=== PATIENT | male | born 1945 | race Caucasian/White ===

== ENCOUNTER → 2020-07-11 02:49 | Outpatient (CLI) | payer BC, SELFPAY ==
[2020-07-11 18:15] LABS: SARS-CoV-2 RNA PCR Negative
== END ==
PROVIDERS: PCP Internal Medicine; Visit Provider Internal Medicine Gastroenterology
DX: Z01.812 Encounter for preprocedural laboratory examination (principal); Z20.822 Contact with and (suspected) exposure to COVID-19
CPT/HCPCS: C9803; U0003; U0005

== ENCOUNTER 2020-07-14 01:37 | Day surgery (SDC) | payer BC, SELFPAY ==
[2020-07-04 14:12] VITALS: BMI 30.8
[2020-07-14 07:03] VITALS: BP 129/57; PULSE 71; RESP 18; TEMP 36.3; O2SAT 97; BMI 35.5
[2020-07-14 07:10] LABS: Glucose Point of Care 95 mg/dl (65-105)
--- NOTE | 2020-07-14 07:10 | PM.HPGS ---
History of Present Illness History of Present Illness Consent: Risks, benefits, and alternatives have been discussed and questions answered. Patient agrees to proceed with procedure. Chief complaint: hx colon polyp Narrative: Albin Ely is a 75 year old male who is here today for colon cancer screening. He had an adenomatous polyp removed 8 years ago Review of Systems Review of Systems: All systems reviewed & are unremarkable except as noted in HPI and below PMFSH Past Medical History Medical History Benign essential hypertension Blindness of left eye BMI 33.0-33.9,adult CKD (chronic kidney disease) Colon cancer screening DM type 2 (diabetes mellitus, type 2) Elevated homocysteine Encounter for Medicare annual wellness exam Encounter for preventive health examination Encounter for routine adult health examination without abnormal findings Encounter for special screening examination for neoplasm of prostate Hearing loss History of colon polyps Hyperlipidemia Mild reactive airways disease On intermediate project manager drug therapy CHEMA on CPAP Family History Family History Mother Family history of Alzheimer's disease Hypertension Father Acute myocardial infarction Family history of coronary artery disease Sibling Family history of diabetes mellitus in first degree relative Family history of coronary artery disease Diabetes mellitus Grandparent Diabetes mellitus Hypertension Grandparent Cancer Other Family history of lung cancer Social History Social History Smoking status: Never smoker Alcohol intake: current Drinks per week: 3 Substance use: never Substance use type: does not use Living arrangements: with family Additional living arrangements comments: lives with spouse, Renetta Spiritual care concerns: No Meds Home Medications and Allergies Home Medications Medication Instructions Recorded Confirmed Type betamethasone dipropionate 0.05 % 1 applic TOPICAL PRN PRN 01/25/19 07/14/20 History topical cream blood sugar diagnostic See Rx Instructions .ROUTE 08/16/19 07/14/20 Rx .COMPLEX #100 strip empagliflozin 10 mg tablet See Rx Instructions .ROUTE 12/18/19 07/14/20 Rx .COMPLEX #90 tablet folic acid 1 mg tablet See Rx Instructions .ROUTE 12/18/19 07/14/20 Rx .COMPLEX #90 tablet icosapent ethyl 1 gram capsule See Rx Instructions .ROUTE 12/18/19 07/14/20 Rx .COMPLEX #360 cap metformin 1,000 mg tablet See Rx Instructions .ROUTE 12/18/19 07/14/20 Rx .COMPLEX #270 tablet candesartan 16 mg tablet See Rx Instructions .ROUTE 01/21/20 07/14/20 Rx .COMPLEX #90 tablet niacin 1,000 mg tablet,extended See Rx Instructions .ROUTE 03/19/20 07/14/20 Rx release 24 hr .COMPLEX #90 tablet pen needle, diabetic 31 gauge x See Rx Instructions .ROUTE 04/21/20 07/14/20 Rx 5/16 .COMPLEX #100 ea sitagliptin 100 mg tablet See Rx Instructions .ROUTE 04/21/20 07/14/20 Rx .COMPLEX #90 tablet liraglutide 0.6 mg/0.1 mL (18 mg/3 1.8 mg SUBCUT DAILY #27 ml 05/28/20 07/14/20 Rx mL) subcutaneous pen injector glimepiride 4 mg tablet See Rx Instructions .ROUTE 06/05/20 07/14/20 Rx .COMPLEX #90 tablet sod picosulf 10 mg-magnes 3.5 160 ml PO BID #160 ml 06/23/20 07/14/20 Rx gram-citric 12 gram/160 mL oral solution Fish Oil 2,000 mg PO BID 07/04/20 07/14/20 History Sudafed 1 dose PO DAILY 07/04/20 07/14/20 History atorvastatin 20 mg PO DAILY 07/04/20 07/14/20 History Allergies Allergy/AdvReac Type Severity Reaction Status Date / Time aspirin Allergy Unknown Anaphylaxis Verified 07/14/20 06:59 NSAIDS (Non-Steroidal Allergy Unknown Anaphylactic Verified 07/14/20 06:59 Anti-Inflamma Shock Vital Signs Vital Signs - 24 hr 07/14/20 07:03 Temperature 36.3 C L Pulse Rate 71 Respiratory Rate 18 Blood Pressure
[2020-07-14] MEDS: LACTATED RINGERS 1,000 ML 150 ML IV CONT (07:18)
--- NOTE | 2020-07-14 07:46 | WPDANESEPPF ---
Anes - Initial Pre Proc Eval Procedure: Operation Date: 07/14/20 08:00 Proposed Procedures p Screening Colonoscopy - Duncan Randhawa MD Date/Time: 07/14/20 07:46 Surgeon: Duncan Randhawa MD Pre Op Diagnosis: hx colon polyp Patient Data Age: 75 Gender: M Height: 1.96 m Weight: 136 kg Last Vital Signs Temp 36.3 C L 07/14/20 07:03 Pulse 71 07/14/20 07:03 Resp 18 07/14/20 07:03 BP 129/57 L 07/14/20 07:03 Pulse Ox 97 07/14/20 07:03 Allergies Allergy/AdvReac Type Severity Reaction Status Date / Time aspirin Allergy Unknown Anaphylaxis Verified 07/14/20 06:59 NSAIDS (Non-Steroidal Allergy Unknown Anaphylactic Verified 07/14/20 06:59 Anti-Inflamma Shock Home Medications Medication Instructions Recorded Confirmed Type betamethasone dipropionate 0.05 % 1 applic TOPICAL PRN PRN 01/25/19 07/14/20 History topical cream blood sugar diagnostic See Rx Instructions .ROUTE 08/16/19 07/14/20 Rx .COMPLEX #100 strip empagliflozin 10 mg tablet See Rx Instructions .ROUTE 12/18/19 07/14/20 Rx .COMPLEX #90 tablet folic acid 1 mg tablet See Rx Instructions .ROUTE 12/18/19 07/14/20 Rx .COMPLEX #90 tablet icosapent ethyl 1 gram capsule See Rx Instructions .ROUTE 12/18/19 07/14/20 Rx .COMPLEX #360 cap metformin 1,000 mg tablet See Rx Instructions .ROUTE 12/18/19 07/14/20 Rx .COMPLEX #270 tablet candesartan 16 mg tablet See Rx Instructions .ROUTE 01/21/20 07/14/20 Rx .COMPLEX #90 tablet niacin 1,000 mg tablet,extended See Rx Instructions .ROUTE 03/19/20 07/14/20 Rx release 24 hr .COMPLEX #90 tablet pen needle, diabetic 31 gauge x See Rx Instructions .ROUTE 04/21/20 07/14/20 Rx 5/16 .COMPLEX #100 ea sitagliptin 100 mg tablet See Rx Instructions .ROUTE 04/21/20 07/14/20 Rx .COMPLEX #90 tablet liraglutide 0.6 mg/0.1 mL (18 mg/3 1.8 mg SUBCUT DAILY #27 ml 05/28/20 07/14/20 Rx mL) subcutaneous pen injector glimepiride 4 mg tablet See Rx Instructions .ROUTE 06/05/20 07/14/20 Rx .COMPLEX #90 tablet sod picosulf 10 mg-magnes 3.5 160 ml PO BID #160 ml 06/23/20 07/14/20 Rx gram-citric 12 gram/160 mL oral solution Fish Oil 2,000 mg PO BID 07/04/20 07/14/20 History Sudafed 1 dose PO DAILY 07/04/20 07/14/20 History atorvastatin 20 mg PO DAILY 07/04/20 07/14/20 History Laboratory Tests 07/14/20 07:08 POC Capillary Glucose 95 mg/dl mg/dl (65-105) Patient hx anesthesia problems: none Family hx anesthesia problems: none PMFSH Past Medical History Medical History Benign essential hypertension Blindness of left eye BMI 33.0-33.9,adult CKD (chronic kidney disease) Colon cancer screening DM type 2 (diabetes mellitus, type 2) Elevated homocysteine Encounter for Medicare annual wellness exam Encounter for preventive health examination Encounter for routine adult health examination without abnormal findings Encounter for special screening examination for neoplasm of prostate Hearing loss History of colon polyps Hyperlipidemia Mild reactive airways disease On retirement drug therapy CHEMA on CPAP Family History Family History Mother Family history of Alzheimer's disease Hypertension Father Acute myocardial infarction Family history of coronary artery disease Sibling Family history of diabetes mellitus in first degree relative Family history of coronary artery disease Diabetes mellitus Grandparent Diabetes mellitus Hypertension Grandparent Cancer Other Family history of lung cancer Social History Social History Smoking status: Never smoker Alcohol intake: current Drinks per week: 3 Substance use: never Substance use type: does not use Living arrangements: with family Additional living arrangements comments: lives with spouse, Renetta Spiritual care concerns: No
[2020-07-14 08:17] VITALS: BP 114/55; PULSE 63; RESP 14; O2SAT 100
[2020-07-14 08:27] VITALS: BP 106/62; PULSE 59; RESP 22; O2SAT 100
[2020-07-14 08:37] VITALS: BP 123/63; PULSE 62; O2SAT 100
== END 2020-07-14 08:46 | disposition home or self-care (01) ==
PROVIDERS: PCP Internal Medicine; Visit Provider Internal Medicine Gastroenterology
PROC: 0DJD8ZZ Inspection of Lower Intestinal Tract, Via Natural or Artificial Opening Endoscopic (ICD-10-PCS; CPT 45378; principal; 2020-07-14 08:00)
DX: Z12.11 Encounter for screening for malignant neoplasm of colon (principal); D12.5 Benign neoplasm of sigmoid colon; K57.30 Diverticulosis of large intestine without perforation or abscess without bleeding; I12.9 Hypertensive chronic kidney disease with stage 1 through stage 4 chronic kidney disease, or unspecified chronic kidney disease; E11.22 Type 2 diabetes mellitus with diabetic chronic kidney disease; N18.9 Chronic kidney disease, unspecified; E78.5 Hyperlipidemia, unspecified; J45.909 Unspecified asthma, uncomplicated; G47.33 Obstructive sleep apnea (adult) (pediatric); Z79.84 Long term (current) use of oral hypoglycemic drugs; E66.9 Obesity, unspecified; Z68.35 Body mass index [BMI] 35.0-35.9, adult
CPT/HCPCS: 45385; 82948; 88305; J2704; J7120

== ENCOUNTER 2022-06-11 01:39 | Day surgery (SDC) | payer BC, SELFPAY ==
[2022-06-02 11:20] VITALS: BMI 29.1
[2022-06-11 13:46] VITALS: BP 130/59; PULSE 91; RESP 20; TEMP 36.4; O2SAT 100; BMI 28.9
[2022-06-11] MEDS: LACTATED RINGERS 1,000 ML 150 ML IV CONT (13:48)
--- NOTE | 2022-06-11 13:49 | WPDANESEPPF ---
Anes - Initial Pre Proc Eval Procedure: Operation Date: 06/11/22 14:45 Proposed Procedures p Esophagogastroduodenoscopy & Colonoscopy - Duncan Randhawa MD Date/Time: 06/11/22 13:49 Surgeon: Duncan Randhawa MD Pre Op Diagnosis: ANIL Patient Data Age: 77 Gender: M Height: 1.96 m Weight: 110.7 kg Last Vital Signs Temp 97.5 F L 06/11/22 13:46 Pulse 91 06/11/22 13:46 Resp 20 06/11/22 13:46 BP 130/59 L 06/11/22 13:46 Pulse Ox 100 06/11/22 13:46 O2 Del Method Room Air 06/11/22 13:46 Allergies Allergy/AdvReac Type Severity Reaction Status Date / Time aspirin Allergy Unknown Anaphylaxis Verified 06/11/22 13:44 NSAIDS (Non-Steroidal Allergy Unknown Anaphylactic Verified 06/11/22 13:44 Anti-Inflamma Shock Home Medications Medication Instructions Recorded Confirmed Type Sudafed 1 dose PO DAILY 07/04/20 06/11/22 History fluticasone propionate 100 1 inh inhalation Q12H #60 ea 05/26/21 06/11/22 Rx mcg/actuation blister powder for inhalation (Flovent Diskus) blood sugar diagnostic (OneTouch #200 strips 09/15/21 06/11/22 Rx Ultra Test strips) pen needle, diabetic 31 gauge x See Rx Instructions .Route 11/05/21 06/11/22 Rx 5/16 (BD Ultra-Fine Short Pen .COMPLEX #90 ea Needle) latanoprost 0.005 % eye drops 1 drp RIGHT EYE DAILY 11/26/21 06/11/22 History atorvastatin 40 mg tablet See Rx Instructions .Route 12/14/21 06/11/22 Rx .COMPLEX #45 tabs candesartan 16 mg tablet See Rx Instructions .Route 02/02/22 06/11/22 Rx .COMPLEX #90 tabs folic acid 1 mg tablet See Rx Instructions .Route 02/02/22 06/11/22 Rx .COMPLEX #90 tabs icosapent ethyl 1 gram capsule See Rx Instructions .Route 02/02/22 06/11/22 Rx .COMPLEX #360 caps metformin 1,000 mg tablet See Rx Instructions .Route 02/02/22 06/11/22 Rx .COMPLEX #270 tabs Serevent Diskus 50 mcg/dose powder See Rx Instructions .Route 05/11/22 06/11/22 Rx for inhalation (salmeterol) .COMPLEX #60 grams betamethasone dipropionate 0.05 % See Rx Instructions .Route 05/11/22 06/11/22 Rx topical cream .COMPLEX #45 grams empagliflozin 25 mg tablet See Rx Instructions .Route 05/11/22 06/11/22 Rx (Jardiance) .COMPLEX #90 tabs glimepiride 4 mg tablet See Rx Instructions .Route 05/11/22 06/11/22 Rx .COMPLEX #90 tabs liraglutide 0.6 mg/0.1 mL (18 mg/3 See Rx Instructions .Route 05/11/22 06/11/22 Rx mL) subcutaneous pen injector .COMPLEX #9 mL (Victoza 3-Presley) niacin 1,000 mg tablet,extended See Rx Instructions .Route 05/11/22 06/11/22 Rx release 24 hr .COMPLEX #135 tabs sitagliptin phosphate 100 mg See Rx Instructions .Route 05/11/22 06/11/22 Rx tablet (Januvia) .COMPLEX #90 tabs timolol maleate 0.5 % once daily 1 drp RIGHT EYE DAILY 06/02/22 06/11/22 History eye drops Patient hx anesthesia problems: none Family hx anesthesia problems: none Results Review: All pre-operative results and documents have been reviewed as part of the pre-operative evaluation. [facility] Past Medical History Medical History Abdominal pain of unknown cause Benign essential hypertension Blindness of left eye BMI 29.0-29.9,adult BMI 30.0-30.9,adult BMI 31.0-31.9,adult BMI 33.0-33.9,adult CKD (chronic kidney disease) Colon cancer screening Diarrhea DM type 2 (diabetes mellitus, type 2) Ear drainage right Elevated homocysteine Encounter for preventive health examination Encounter for routine adult health examination with abnormal findings Encounter for routine adult health examination without abnormal findings External otitis of right ear History of colon polyps Hx of retinal detachment Hyperlipidemia Impacted cerumen of both ears Impacted cerumen of right ear Impacted cerumen, left ear Iron deficiency anemia Light headed Mild reactive airways disease On shelter drug therapy CHEMA on CPAP Otitis Rib pain on left side Vitamin D deficiency Family History Family Hist
[2022-06-11 14:02] LABS: Glucose Point of Care 117 mg/dl (65-105)
--- NOTE | 2022-06-11 14:09 | PM.HPGS ---
History of Present Illness History of Present Illness Consent: Risks, benefits, and alternatives have been discussed and questions answered. Patient agrees to proceed with procedure. Chief complaint: ANIL Narrative: Albin Ely is a 77 year old male Who has been found to be anemic.? His hemoglobin dropped from over 14 a year ago to 12.4? now.? Also his serum iron is low as is ferritin which is only 6.? He does not see blood in his stools.? He has not seen black or tarry stools.? He does not take NSAIDs or aspirin.? He has never been told he was anemic in the past.? He had a colonoscopy couple years ago with removal of a polyp.?? Review of Systems Review of Systems: All systems reviewed & are unremarkable except as noted in HPI and below PMFSH Past Medical History Medical History Abdominal pain of unknown cause Benign essential hypertension Blindness of left eye BMI 29.0-29.9,adult BMI 30.0-30.9,adult BMI 31.0-31.9,adult BMI 33.0-33.9,adult CKD (chronic kidney disease) Colon cancer screening Diarrhea DM type 2 (diabetes mellitus, type 2) Ear drainage right Elevated homocysteine Encounter for preventive health examination Encounter for routine adult health examination with abnormal findings Encounter for routine adult health examination without abnormal findings External otitis of right ear History of colon polyps Hx of retinal detachment Hyperlipidemia Impacted cerumen of both ears Impacted cerumen of right ear Impacted cerumen, left ear Iron deficiency anemia Light headed Mild reactive airways disease On termite control representative drug therapy CHEMA on CPAP Otitis Rib pain on left side Vitamin D deficiency Family History Family History Mother Family history of Alzheimer's disease Hypertension Father Acute myocardial infarction Family history of coronary artery disease Sibling Family history of diabetes mellitus in first degree relative Family history of coronary artery disease Diabetes mellitus Grandparent Diabetes mellitus Hypertension Grandparent Cancer Other Family history of lung cancer Social History Social History Smoking status: Never smoker Second hand tobacco smoke exposure: No Alcohol intake: current Drinks per week: 3 Substance use: never Substance use type: does not use Lack of Transportation: No Lack of Food: Never True Current Housing: I Have Housing Concerned About Future Housing: No Difficulty Paying Gas/Electric Bills: No Difficulty Paying for Meds: No Currently Unemployed: No Education: Bachelor's Degree Difficulty w/ Childcare or Family Care: No Living arrangements: with family Additional living arrangements comments: lives with spouseRenetta Gender identity (if verbalized by the patient): Male Spiritual care concerns: No Meds Home Medications and Allergies Home Medications Medication Instructions Recorded Confirmed Type Sudafed 1 dose PO DAILY 07/04/20 06/11/22 History fluticasone propionate 100 1 inh inhalation Q12H #60 ea 05/26/21 06/11/22 Rx mcg/actuation blister powder for inhalation (Flovent Diskus) blood sugar diagnostic (OneTouch #200 strips 09/15/21 06/11/22 Rx Ultra Test strips) pen needle, diabetic 31 gauge x See Rx Instructions .Route 11/05/21 06/11/22 Rx 5/16 (BD Ultra-Fine Short Pen .COMPLEX #90 ea Needle) latanoprost 0.005 % eye drops 1 drp RIGHT EYE DAILY 11/26/21 06/11/22 History atorvastatin 40 mg tablet See Rx Instructions .Route 12/14/21 06/11/22 Rx .COMPLEX #45 tabs candesartan 16 mg tablet See Rx Instructions .Route 02/02/22 06/11/22 Rx .COMPLEX #90 tabs folic acid 1 mg tablet See Rx Instructions .Route 02/02/22 06/11/22 Rx .COMPLEX #90 tabs icosapent ethyl 1 gram capsule See Rx Instructions .Route 02/02/22 06/11/22 Rx .COMPLEX
--- NOTE | 2022-06-11 14:37 | SUR.OPER ---
EGD completed at 1430, Colonoscopy started at 1437
[2022-06-11 15:00] VITALS: BP 114/58; PULSE 70; RESP 18; O2SAT 100
[2022-06-11 15:10] VITALS: BP 118/57; PULSE 78; RESP 18; O2SAT 100
[2022-06-11 15:20] VITALS: BP 142/58; PULSE 72; RESP 25; O2SAT 100
== END 2022-06-11 15:32 | disposition home or self-care (01) ==
PROVIDERS: PCP Internal Medicine; Visit Provider Internal Medicine Gastroenterology
PROC: 0DJ08ZZ Inspection of Upper Intestinal Tract, Via Natural or Artificial Opening Endoscopic (ICD-10-PCS; CPT 43235; principal; 2022-06-11 14:45)
DX: D50.9 Iron deficiency anemia, unspecified (principal); K64.8 Other hemorrhoids; D12.0 Benign neoplasm of cecum; K57.30 Diverticulosis of large intestine without perforation or abscess without bleeding; I12.9 Hypertensive chronic kidney disease with stage 1 through stage 4 chronic kidney disease, or unspecified chronic kidney disease; E11.22 Type 2 diabetes mellitus with diabetic chronic kidney disease; N18.9 Chronic kidney disease, unspecified; E78.5 Hyperlipidemia, unspecified; G47.33 Obstructive sleep apnea (adult) (pediatric); Z79.51 Long term (current) use of inhaled steroids; Z79.84 Long term (current) use of oral hypoglycemic drugs; Z79.899 Other long term (current) drug therapy
CPT/HCPCS: 45380; 82948; 87081; 88305; J7120

== ENCOUNTER 2022-07-26 10:01 | Outpatient (CLI) | payer BC, SELFPAY ==
--- NOTE | 2022-07-26 10:50 | ECG_ITS ---
Measurements Intervals [place] Rate: 83 P: 11 WY: 172 QRS: -3 QRSD: 99 T: 50 QT: 365 QTc: 430 Interpretive Statements SINUS RHYTHM LOW QRS VOLTAGE IN EXTREMITY LEADS [QRS DEFLECTION < 0.5 mV IN LIMB LEADS] ABNORMAL ECG NO PREVIOUS ECG AVAILABLE FOR COMPARISON Electronically Signed On 07-26-2022 15:54:41 CDT by Vincent Islas M.D.
[2022-07-26 12:01] LABS: Hematocrit 39.6 % (42.0-52.0); Hemoglobin 12.8 g/dL (14.0-18.0)
[2022-07-26 12:13] LABS: Anion Gap 9 mmol/L (8-16); Blood Urea Nitrogen 15 mg/dL (9-20); Calcium 9.1 mg/dL (8.4-10.2); Carbon Dioxide 27 mmol/L (22-30); Chloride 96 mmol/L (98-107); Estimated Glomerular Filt Rate 59; Glucose 243 mg/dL (65-110); Potassium 4.3 mmol/L (3.4-5.0); Sodium 132 mmol/L (137-145)
== END 2022-07-26 10:02 | disposition home or self-care (01) ==
LOC: ANHSURGERY 10:05
PROVIDERS: Anesthesiology; PCP Internal Medicine; Visit Provider Surgery
DX: K63.5 Polyp of colon (principal); E11.9 Type 2 diabetes mellitus without complications; Z01.818 Encounter for other preprocedural examination
CPT/HCPCS: 36415; 80048; 85014; 85018; 86850; 86900; 86901; 93005

== ENCOUNTER 2022-08-05 10:01 | Inpatient (IN) | payer MEDICARE, BC, SELFPAY ==
[2022-07-26 09:42] VITALS: BP 154/56; PULSE 90; RESP 20; TEMP 36.3; O2SAT 99; BMI 29.5
--- NOTE | 2022-07-26 09:43 | PC.NURSE ---
PRE-OP INSTRUCTIONS, PLEASE READ CAREFULLY Report to the Outpatient Waiting Room, entrance under the green pavilion located off [facility], at time _1030_ on date _08/04/22_. Planned Procedure Time: _1230_. PACK A SMALL OVERNIGHT BAG AND LEAVE IN THE CAR Time changes happen often and if your time is changed the preop area will call you the afternoon before. - You and your visitor will be asked to self-screen and do not enter if you have any COVID symptoms. - A mask is optional within the hospital at this time. -VISITING HOURS 8AM-8PM Patients may have clear liquids (water, carbonated beverages, clear teas, apple juice) until 3 hours prior to surgery (0930 AM) with a maximum of 20 ounces. - No food from midnight until time of surgery Take the following medications with a SIP of water the morning of surgery: _INHALERS, EYE DROPS_ DO NOT STOP ANY OF YOUR OTHER PRESCRIPTION MEDICATIONS PRIOR TO SURGERY ?EXCEPT THE FOLLOWING Medications to discontinue per physician __NONE____, Date to take last dose Please no make-up, nail taiwanese, hairspray, perfume, deodorant, or body powder the day of surgery. No jewelry (including any body piercings) or valuables the day of surgery, leave them at home. Please take a shower or bath the night before, or the morning of, surgery with an antibacterial soap. Wear comfortable, loose fitting clothing. - Jewelry must be removed prior to entering the operating room. Rings and piercings that are not removed may be cut off. - The hospital will not accept responsibility for valuables. - Please leave all valuables, including medications, at home the day of surgery. If you are going home after surgery, a licensed driver's license examiner must drive you home. - NO public transportation without another adult if you receive anesthesia. - We recommend that an adult stay with you for 24 hours following discharge. - We also recommend that you do not drive, make important decision, drink alcoholic beverages, or take any drugs that were not prescribed by your health care provider for at least 24 hours after your discharge time. Follow any additional instructions given to you BY DR. SUTTON. - BOWEL PREP, PRE-OP ANTIBIOTICS & HIBICLENS SHOWER DAY BEFORE & AM OF SURGERY If you or anyone in your household have experienced Covid symptoms in the past week, please notify your surgeon or the nurse liaison at the phone number below for possible testing. Instructions given to _PATIENT & SPOUSE (ROSARIO)_and asked if any additional questions and then verbalized understanding. Patient advised to call surgeon office or pre surgery nurse liaison [phone] if any additional questions.
[2022-08-04] VITALS (12 sets, daily range): BP systolic 137–161; BP diastolic 58–92; PULSE 70–91; RESP 12–20; TEMP 36.3–36.4; O2SAT 95–100
[2022-08-04] MEDS: ACETAMINOPHEN 500 MG TABLET 1000 MG PO ×3 (10:29→23:41)
[2022-08-04] MEDS: LACTATED RINGERS 1,000 ML 30 ML IV CONT ×2 (10:32→16:11)
[2022-08-04 11:08] LABS: Glucose Point of Care 264 mg/dl (65-105)
--- NOTE | 2022-08-04 11:31 | WPDANESEPPF ---
Anes - Initial Pre Proc Eval Procedure: Operation Date: 08/04/22 12:30 Proposed Procedures p Laparoscopic Right Hemicolectomy, Davinci Assisted - Flaquito Gomes DO Date/Time: 08/04/22 11:31 Surgeon: Flaquito Gomes DO Pre Op Diagnosis: cecal polyp Patient Data Age: 77 Gender: M Height: 1.96 m Weight: 110.1 kg Last Vital Signs Temp 36.3 C L 08/04/22 10:56 Pulse 90 08/04/22 10:56 Resp 16 08/04/22 10:56 BP 137/66 08/04/22 10:56 Pulse Ox 99 08/04/22 10:56 O2 Del Method Room Air 08/04/22 10:56 Allergies Allergy/AdvReac Type Severity Reaction Status Date / Time aspirin Allergy Unknown Anaphylaxis Verified 08/04/22 10:55 NSAIDS (Non-Steroidal Allergy Unknown Anaphylactic Verified 08/04/22 10:55 Anti-Inflamma Shock Home Medications Medication Instructions Recorded Confirmed Type Sudafed 1 dose PO DAILY 07/04/20 08/04/22 History blood sugar diagnostic (OneTouch #200 strips 09/15/21 07/26/22 Rx Ultra Test strips) pen needle, diabetic 31 gauge x See Rx Instructions .Route 11/05/21 07/26/22 Rx 5/16 (BD Ultra-Fine Short Pen .COMPLEX #90 ea Needle) latanoprost 0.005 % eye drops 1 drp RIGHT EYE DAILY 11/26/21 08/04/22 History candesartan 16 mg tablet See Rx Instructions .Route 02/02/22 08/04/22 Rx .COMPLEX #90 tabs folic acid 1 mg tablet See Rx Instructions .Route 02/02/22 08/04/22 Rx .COMPLEX #90 tabs icosapent ethyl 1 gram capsule See Rx Instructions .Route 02/02/22 08/04/22 Rx .COMPLEX #360 caps metformin 1,000 mg tablet See Rx Instructions .Route 02/02/22 08/04/22 Rx .COMPLEX #270 tabs betamethasone dipropionate 0.05 % See Rx Instructions .Route 05/11/22 08/04/22 Rx topical cream .COMPLEX #45 grams empagliflozin 25 mg tablet See Rx Instructions .Route 05/11/22 08/04/22 Rx (Jardiance) .COMPLEX #90 tabs glimepiride 4 mg tablet See Rx Instructions .Route 05/11/22 08/04/22 Rx .COMPLEX #90 tabs liraglutide 0.6 mg/0.1 mL (18 mg/3 See Rx Instructions .Route 05/11/22 08/04/22 Rx mL) subcutaneous pen injector .COMPLEX #9 mL (Victoza 3-Presley) niacin 1,000 mg tablet,extended See Rx Instructions .Route 05/11/22 08/04/22 Rx release 24 hr .COMPLEX #135 tabs sitagliptin phosphate 100 mg See Rx Instructions .Route 05/11/22 08/04/22 Rx tablet (Januvia) .COMPLEX #90 tabs timolol maleate 0.5 % once daily 1 drp RIGHT EYE DAILY 06/02/22 08/04/22 History eye drops atorvastatin 40 mg tablet See Rx Instructions .Route 06/15/22 08/04/22 Rx .COMPLEX #45 tabs fluticasone propionate 100 See Rx Instructions .Route 06/15/22 08/04/22 Rx mcg/actuation blister powder for .COMPLEX #60 grams inhalation (Flovent Diskus) pantoprazole 40 mg tablet,delayed 40 mg PO QAM #30 tabs 06/17/22 08/04/22 Rx release pen needle, diabetic 32 gauge x #50 ea 06/21/22 07/26/22 Rx 1/4 (Comfort EZ Pen [place]) ciprofloxacin HCl 500 mg tablet 500 mg PO .COMPLEX #1 tablet 06/22/22 08/04/22 Rx metronidazole 500 mg tablet 500 mg PO .COMPLEX #3 tabs 06/22/22 08/04/22 Rx Serevent Diskus 50 mcg/dose powder See Rx Instructions .Route 07/12/22 08/04/22 Rx for inhalation (salmeterol) .COMPLEX #60 grams cyanocobalamin (vitamin B-12) 1,000 mcg PO DAILY 07/26/22 08/04/22 History 1,000 mcg capsule Laboratory Tests 08/04/22 11:04 POC Capillary Glucose 264 H mg/dl (65-105) Patient hx anesthesia problems: none Family hx anesthesia problems: none Results Review: All pre-operative results and documents have been reviewed as part of the pre-operative evaluation. [facility] Past Medical History Medical History Abdominal pain of unknown cause Asthma Benign essential hypertension Blindness of left eye BMI 29.0-29.9,adult BMI 30.0-30.9,adult BMI 31.0-31.9,adult BMI 33.0-33.9,adult CKD (chronic kidney disease) Colon cancer screening Diarrhea DM type 2 (diabetes mellitus, type 2) Ear drainage right Aubrie
--- NOTE | 2022-08-04 11:31 | WPDHPUPDATE1 ---
History and Physical Update Update Date/Time: 08/04/22 11:31 History and Physical has been reviewed, including an updated exam of the patient. There are NO changes in the patient's condition. Risks, benefits, and alternatives have been discussed and questions answered. Patient agrees to proceed with procedure.
--- NOTE | 2022-08-04 11:31 | PM.IMHP ---
H&P: HPI History of Present Illness Date/Time: 08/04/22 11:31 Chief Complaint: Cecal polyp Narrative: This is a 77-year-old man who presents for right hemicolectomy. He denies any changes since last seen in the office. He was found to have a large cecal polyp on colonoscopy which could not be removed endoscopically. Biopsies confirmed adenomatous changes. Review of Systems Review of Systems: All systems reviewed & are unremarkable except as noted in HPI and below Constitutional: Constitutional: Denies chills, Denies fever(s), Denies headache(s) and Denies weight loss Eyes: Eyes: Denies change in vision ENT: Denies dizziness, Denies headache(s), Denies neck mass and Denies throat swelling Cardiovascular: Cardiovascular: Denies chest pain, Denies lightheadedness and Denies dyspnea Respiratory: Respiratory: Denies cough, Denies dyspnea and Denies wheezing Gastrointestinal: Gastrointestinal: Denies abdominal pain, Denies change in bowel habits, Denies nausea and Denies vomiting Genitourinary: Genitourinary: Denies hematuria and Denies dysuria Musculoskeletal: Musculoskeletal: Reports as per HPI Integumentary/Breasts: Skin/Breast: Reports as per HPI Neurologic: Denies dizziness and Denies headache(s) Allergic/Immunologic: Allergic/Immunologic: Denies throat swelling and Denies wheezing PMFSH Past Medical History Medical History Abdominal pain of unknown cause Asthma Benign essential hypertension Blindness of left eye BMI 29.0-29.9,adult BMI 30.0-30.9,adult BMI 31.0-31.9,adult BMI 33.0-33.9,adult CKD (chronic kidney disease) Colon cancer screening Diarrhea DM type 2 (diabetes mellitus, type 2) Ear drainage right Elevated homocysteine Encounter for preventive health examination Encounter for routine adult health examination with abnormal findings Encounter for routine adult health examination without abnormal findings External otitis of right ear History of colon polyps Hx of retinal detachment Hyperlipidemia Impacted cerumen of both ears Impacted cerumen of right ear Impacted cerumen, left ear Iron deficiency anemia Light headed Mild reactive airways disease On terminal makeup operator drug therapy CHEMA on CPAP Otitis Rib pain on left side Vitamin D deficiency Surgical History Surgical History History of eye surgery Family History Family History Mother Family history of Alzheimer's disease Hypertension Father Acute myocardial infarction Family history of coronary artery disease Sibling Family history of diabetes mellitus in first degree relative Family history of coronary artery disease Diabetes mellitus Grandparent Diabetes mellitus Hypertension Grandparent Cancer Other Family history of lung cancer Social History Social History Social History: Caffeine-half caf coffee Smoking status: Never smoker Second hand tobacco smoke exposure: No Alcohol intake: current Drinks per week: 3 Substance use: never Substance use type: does not use Lack of Transportation: No Lack of Food: Never True Current Housing: I Have Housing Concerned About Future Housing: No Difficulty Paying Gas/Electric Bills: No Difficulty Paying for Meds: No Currently Unemployed: No Education: Bachelor's Degree Difficulty w/ Childcare or Family Care: No Living arrangements: with family Additional living arrangements comments: lives with spouse, Renetta Gender identity (if verbalized by the patient): Male Spiritual care concerns: No Meds Home Medications and Allergies Home Medications Medication Instructions Recorded Confirmed Type Sudafed 1 dose PO DAILY 07/04/20 08/04/22 History blood sugar diagnostic (OneTouch #200 strips 09/15/21 07/26/22 Rx Ultra Makayla
--- NOTE | 2022-08-04 11:59 | SUR.PREOP ---
1159- Reviewed pt blood sugar of [address] Charles. He stated no treatment at this time. Will check again in PACU.
[2022-08-04] MEDS: ceFAZolin 2 GM/D5W 50 ML 2 GM/50 ML BAG IVPB (12:01)
[2022-08-04] MEDS: INDOCYANINE GREEN 25 MG VIAL WITH DILUENT 3.75 MG IV PUSH (14:11)
[2022-08-04] MEDS: fentaNYL CITRATE INJ (*CRX) 100 MCG/2 ML VIAL 25 MCG IV PUSH ×2 (16:12→16:36)
[2022-08-04 16:15] LABS: Glucose Point of Care 188 mg/dl (65-105)
--- NOTE | 2022-08-04 16:15 | W.PM.PROC2 ---
Procedure Note - Detailed Date of Procedure 08/04/22 Pre-op Diagnosis cecal polyp Post-op Diagnosis Same Procedure Performed Laparoscopic right hemicolectomy with ileocolic anastomosis, da Danielle assisted Surgeon Flaquito Gomes, DO Anesthesia General and Local (Exparel) Indications This is a 77-year-old man who presented with a recent finding of a cecal polyp colonoscopy. Biopsy showed evidence of adenoma. The colonoscopy was originally done for anemia. He denies noticing any blood in his stool. Discussions were made with the patient about treatment options and decision was made to proceed with robotic assisted laparoscopic right hemicolectomy. Findings Robotic assisted laparoscopic right hemicolectomy was performed. The sigmoid colon appeared to be somewhat redundant and pushing up near the ileocolic pedicle which made identifying the duodenum somewhat difficult initially. With careful dissection I was able to identify the duodenum and performed a high ligation of the ileocolic vessels. There were also a few epiploic appendage adhesions from the sigmoid colon onto the ileum. These were taken down to allow adequate mobilization of the terminal ileum up to the transverse colon. A [id number] isoperistaltic anastomosis was performed. Indocyanine green was used to confirm adequate perfusion prior to resection and after anastomosis. The right colon was removed and sent to the lab for pathology. Description of Procedure Procedure as well as risks, benefits, and alternatives were discussed with the patient.? Written consent was obtained and placed in chart prior to procedure.? Patient was brought back to surgical suite.? He was placed supine on operating table.? Time-out was done to confirm patient and procedure.? He was then intubated by the anesthesia department.? His abdomen was prepped and draped in sterile fashion using chlorhexidine prep.? An 8 mm incision was made in the left upper quadrant and a 5 mm Optiview trocar was advanced through the abdominal layers under direct visualization.? Once inside the abdominal cavity, carbon dioxide insufflation was used to create a pneumoperitoneum.? Camera was inserted in the abdomen was inspected.? The patient was placed in 5 degree Trendelenburg and 10? rotated left an 8 mm incision was made in the suprapubic region in midline and an 8 mm trocar was inserted under direct visualization another 8 mm incision was made in the umbilical region just inferior into the left of the umbilicus and an 8 mm trocar was inserted under direct visualization.? A 12 mm incision was made in the left lateral abdomen and a 12 mm trocar was inserted under direct visualization.? An 8 mm incision was made in the left lower quadrant and an 8 mm assist port was placed under direct visualization.? The 5 mm port was then removed and exchanged for an 8 mm port.? The robotic arms were then brought up to the patient's bedside and secured to the ports.? The camera and instruments were then inserted.? I then moved over to the robotic console and took control of the camera and instruments.? Thorough inspection was made around the abdominal cavity.? The omentum was then reflected cephalad over the transverse colon.? The area near the ileocecal valve was grasped and retracted anterior and laterally to tent up the ileocolic pedicle.? Scissors with electrocautery were then used to perform the medial to lateral dissection.? I entered into the avascular plane just inferior to the ileocolic pedicle and carefully dissected cephalad to identify the duodenum.? Once the duodenum was identified and then continued sweeping the retroperitoneal structures posteriorly and then isolated the ileocolic pedicle.? A high ligation of the ileocolic vessels was then performed using the vessel sealer.? Hemostasis appeared adequate.? The medial to lateral dissection was then continued cephalad towards the hepatic flexure.? I continued this dissection until I created a window in the
--- NOTE | 2022-08-04 17:21 | SUR.PHASEI ---
pt stable for floor. pt home medications need to be fixed per dr salinas. dr salinas wanted to let floor know he consulted hospitalist to help with that.
--- NOTE | 2022-08-04 17:44 | ADMGEN ---
This patient, Albin Ely, was admitted to 2 Medical Room 240-. Patient/family oriented to hospital policies and general routines including ID bracelet, bed and alarms, visiting hours, pain management, procedures, bathroom and other care routines, personal items, smoking policy, room service/diet, and visiting hours. Information on how to activate the Rapid Response Team has been discussed. Patient/Family are encouraged to report perceived risks to care and to ask questions if they do not understand what they are told or what they should do.
[2022-08-04] MEDS: LACTATED RINGERS 1,000 ML 100 ML IV CONT (17:56)
[2022-08-04] MEDS: ceFAZolin 1 GM/NS 50 ML 1 GM/50 ML BAG IVPB (20:41)
[2022-08-04 21:05] LABS: Glucose Point of Care 187 mg/dl (65-105)
[2022-08-05] VITALS (8 sets, daily range): BP systolic 114–157; BP diastolic 40–73; PULSE 68–88; RESP 16–18; TEMP 36.4–36.7; O2SAT 97–100
[2022-08-05] MEDS: LACTATED RINGERS 1,000 ML 100 ML IV CONT (04:31)
[2022-08-05] MEDS: ceFAZolin 1 GM/NS 50 ML 1 GM/50 ML BAG IVPB (04:33)
[2022-08-05] MEDS: ACETAMINOPHEN 500 MG TABLET 1000 MG PO ×4 (04:34→23:17)
[2022-08-05 05:40] LABS: Basophils Absolute Auto 0.1 K/mm3 (0.0-0.1); Basophils Percent Auto 0.4 % (0.2-1.2); Eosinophils Percent Auto 0.3 % (0-4.4); Hematocrit 39.1 % (42.0-52.0); Hemoglobin 12.7 g/dL (14.0-18.0); Immature Granulocyte Absolute 0.05 K/mm3 (0.00-0.031); Immature Granulocyte Percent A 0.4 % (0-0.5); Lymphocytes Absolute Auto 1.66 K/mm3 (0.9-3.2); Mean Corpuscular HGB Conc 32.5 g/dl (32-36); Mean Corpuscular Hemoglobin 27.7 pg (26-34); Mean Corpuscular Volume 85.2 fl (80-100); Mean Platelet Volume 9.6 fl (7.4-10.4); Monocytes Absolute Auto 1.2 K/mm3 (0.1-0.6); Monocytes Percent Auto 8.8 % (2.6-8.5); Neutrophils Absolute Auto 10.8 K/mm3 (1.3-6.7); Neutrophils Percent Auto 78.1 % (45.5-73.1); Platelet Count Result 236 k/mm3 (150-375); Red Blood Count 4.59 M/mm3 (4.6-6.20); Red Cell Distribution Width 15.6 % (11.5-14.5); White Blood Count 13.8 K/mm3 (4.5-10.0)
[2022-08-05 05:56] LABS: Anion Gap 11 mmol/L (8-16); Blood Urea Nitrogen 13 mg/dL (9-20); Calcium 9.2 mg/dL (8.4-10.2); Carbon Dioxide 24 mmol/L (22-30); Chloride 98 mmol/L (98-107); Estimated CRCL calculation 48 ml/min; Estimated Glomerular Filt Rate 46; Glucose 149 mg/dL (65-110); Potassium 5.2 mmol/L (3.4-5.0); Sodium 133 mmol/L (137-145)
[2022-08-05] MEDS: SALMETEROL XINAFOATE 50 MCG DISKUS 1 PUFF INHALATION ×2 (07:19→19:26)
--- NOTE | 2022-08-05 07:34 | P.PNAN_ITS ---
Anes - Prog Note Post-Op Date/Time: 08/05/22 07:34 Cardiovascular status: normal Respiratory status: normal Airway patency: baseline Mental status: baseline Post-Op hydration status: normal Vital Signs: Last Vital Signs Temp 36.5 C 08/05/22 04:37 Pulse 82 08/05/22 07:20 Resp 18 08/05/22 07:20 BP 127/60 08/05/22 04:37 Pulse Ox 98 08/05/22 07:20 O2 Del Method Room Air 08/05/22 07:20 O2 Flow Rate 10 08/04/22 15:57 Pain Score (VAS): 04/16 I/O: Intake & Output 08/04/22 08/04/22 08/05/22 15:59 23:59 07:59 Intake Total 50 125 1300 Output Total 800 Balance 50 125 500 Laboratory Tests 08/05/22 05:06 08/05/22 05:06 08/04/22 08/04/22 08/04/22 11:04 16:00 20:44 WBC RBC Hgb Hct MCV MCH MCHC RDW Plt Count MPV Immature Gran % (Auto) Neut % (Auto) Lymph % (Auto) [place] % (Auto) Eos % (Auto) Baso % (Auto) Lymph # (Auto) [place] # (Auto) Eos # (Auto) Baso # (Auto) Abs Immat Gran (auto) Absolute Neuts (auto) Absolute Nucleated RBC Nucleated RBC % Sodium Potassium Chloride Carbon Dioxide Anion Gap BUN Creatinine Estim Creat Clear Calc Estimated GFR Glucose POC Capillary Glucose 264 H 188 H 187 H Calcium 08/05/22 05:06 WBC 13.8 H RBC 4.59 L Hgb 12.7 L Hct 39.1 L MCV 85.2 MCH 27.7 MCHC 32.5 RDW 15.6 H Plt Count 236 MPV 9.6 Immature Gran % (Auto) 0.4 Neut % (Auto) 78.1 H Lymph % (Auto) 12.0 L [place] % (Auto) 8.8 H Eos % (Auto) 0.3 Baso % (Auto) 0.4 Lymph # (Auto) 1.66 [place] # (Auto) 1.2 H Eos # (Auto) 0.0 Baso # (Auto) 0.1 Abs Immat Gran (auto) 0.05 H Absolute Neuts (auto) 10.8 H Absolute Nucleated RBC 0.0 Nucleated RBC % 0.0 Sodium 133 L Potassium 5.2 H Chloride 98 Carbon Dioxide 24 Anion Gap 11 BUN 13 Creatinine 1.50 H Estim Creat Clear Calc 48 Estimated GFR 46 L Glucose 149 H POC Capillary Glucose Calcium 9.2 Post-procedural complaints: none Patient Feedback: Patient satisfied with anesthetic care.
[2022-08-05] MEDS: CYANOCOBALAMIN 1,000 MCG TABLET 1000 MCG PO (08:26)
[2022-08-05] MEDS: ATORVASTATIN 20 MG TABLET PO (08:26)
[2022-08-05] MEDS: ENOXAPARIN 40 MG/0.4 ML SYRINGE SUB-Q (08:27)
[2022-08-05] MEDS: TIMOLOL MALEATE 0.5% OP SOLN 5 ML BOTTLE 1 DROP RIGHT EYE (08:27)
[2022-08-05] MEDS: PANTOPRAZOLE 40 MG TABLET PO (08:28)
[2022-08-05] MEDS: PSEUDOEPHEDRINE HCL 30 MG TABLET PO (08:28)
[2022-08-05 08:39] LABS: Glucose Point of Care 150 mg/dl (65-105)
--- NOTE | 2022-08-05 08:41 | PM.IMCN ---
Assessment and Plan Assessment and plan (1) Cecal polyp: Code(s): K63.5 - Polyp of colon Status: Acute Assessment and Plan: POD 1 for right hemicolectomy with Dr Gomes. -Tolerating clear liquid diet. Primary team to advance diet when appropriate. -Hypoactive bowel sounds and no flatus -Surgical incisions are C/D/I and approximated with glue. -Incentive spirometer ordered and at bedside. -DVT prophylaxis Enoxaparin 40 mg daily -Encourage ambulation and up out of bed during the day. Patient is rather independent and does not appear like he will need therapy consult. I encouraged him to walk in the halls with his today. (2) Hyperlipidemia: Qualifiers: Hyperlipidemia type: mixed hyperlipidemia Qualified Code(s): E78.2 - Mixed hyperlipidemia Code(s): E78.5 - Hyperlipidemia, unspecified Status: Acute Assessment and Plan: Stable on home medications. Atorvastatin 40 mg PO daily restarted. Lipid panel from 04/2022 is WNL (3) Postoperative urinary retention: Code(s): N99.89 - Other postprocedural complications and disorders of genitourinary system; R33.8 - Other retention of urine Status: Acute Assessment and Plan: Required straight cath last night with 800 ml output. Still unable to void this morning. Nursing to obtain bladder scan. If PVR > 500 ml recommend replacing levy with coude and starting Flomax for 24 hours before reattempting void trial. (4) Benign essential hypertension: Code(s): I10 - Essential (primary) hypertension Status: Acute Assessment and Plan: Blood pressures reviewed. Controlled with home medications Candesartan 16 mg Po daily, restarted. (5) DM type 2 (diabetes mellitus, type 2): Qualifiers: Diabetes mellitus complication status: without complication Diabetes mellitus longterm insulin use: without salvage determiner use Qualified Code(s): E11.9 - Type 2 diabetes mellitus without complications Code(s): E11.9 - Type 2 diabetes mellitus without complications Status: Acute Assessment and Plan: Hemoglobin A1c 7.6 in 04/2022. Recommend holding PO home medications and starting low dose sliding scale for blood glucose goal of < 180 fasting. -accu checks ac/hs. HPI Data of Consult Consult date: 08/05/22 Requesting Physician: Flaquito Gomes DO Primary Care Provider: Brett Puentes MD Consult Narrative Narrative: Albin Ely is a 77 year old male with a PMH of HTN,CKD, DM 2, and HLD . He was found to have a large cecal polyp on colonoscopy which could not be removed endoscopically.? Biopsies confirmed adenomatous changes. Today he is POD 1 for right hemicolectomy with Dr Gomes. We have been consulted for medical management during his recovery. Patient seen this morning sitting on the edge of his bed having breakfast. He appears well and states that he is feeling good but has had some difficulty going to the bathroom. He required straight catheterization x 1 this morning with a total of 800 ml output. He recently has tried to void again but is unsuccessful. Will have nursing bladder scan now. Patient may need to have his Levy reinserted and started on flomax. He is tolerating clear liquids without N/V. He feels that his pain is well controlled. He denies H/A, dizziness, SOB, CP, fever, chills, or cough. Review of Systems Review of Systems: All systems reviewed & are unremarkable except as noted in HPI and below PMFSH Past Medical History Medical History Abdominal pain of unknown cause Asthma Benign essential hypertension Blindness of left eye BMI 29.0-29.9,adult BMI 30.0-30.9,adult BMI 31.0-31.9,adult BMI 33.0-33.9,adult CKD (chronic kidney disease) Colon cancer screening Diarrhea DM type 2 (diabetes mellitus, type 2) Ear drainage right Elevated homocysteine Encounter for preventive health examination Encounter for
[2022-08-05 12:22] LABS: Glucose Point of Care 225 mg/dl (65-105)
[2022-08-05] MEDS: INSULIN ASPART (*BKC) 100 UNITS/ML SUB-Q (12:29)
--- NOTE | 2022-08-05 12:41 | PM.PNGS ---
Progress Note: A&P Assessment and Plan (1) Cecal polyp: Code(s): K63.5 - Polyp of colon Status: Acute Assessment and Plan: Will advance to full liquids for dinner Increase activity Await return of bowel function Final path pending (2) Postoperative urinary retention: Code(s): N99.89 - Other postprocedural complications and disorders of genitourinary system; R33.8 - Other retention of urine Status: Acute Assessment and Plan: Monitoring with bladder scans Might need catheter in for a day or so. Subjective Subjective Date/Time Seen: 08/05/22 12:41 Interval history: Tolerating clears. No BM or flatus yet. Had urinary retention overnight. Still hasn't urinated this AM. Pain well controlled. Exam GI: Inspection: non-distended and incision (intact with glue) Objective Data Vital Signs Vital Signs: Vital Signs - 24 hr 08/04/22 15:57 08/04/22 16:00 08/04/22 16:15 Temperature 36.3 C L Pulse Rate 78 78 76 Respiratory Rate 15 20 20 Blood Pressure 141/68 H 138/70 141/64 H Pulse Oximetry 100 97 96 Oxygen Delivery Simple Face Mask Room Air Room Air Oxygen Flow Rate 10 08/04/22 16:30 08/04/22 16:45 08/04/22 17:00 Temperature 36.3 C L Pulse Rate 73 76 71 Respiratory Rate 12 12 12 Blood Pressure 140/65 145/69 H 138/92 H Pulse Oximetry 95 96 98 Oxygen Delivery Room Air Room Air Room Air Oxygen Flow Rate 08/04/22 17:00 08/04/22 17:15 08/04/22 18:00 Temperature 36.3 C L Pulse Rate 70 76 83 Respiratory Rate 12 13 18 Blood Pressure 144/71 H 148/68 H 148/58 H Pulse Oximetry 96 96 96 Oxygen Delivery Room Air Room Air Oxygen Flow Rate 08/04/22 18:15 08/04/22 18:45 08/04/22 20:57 Temperature 36.3 C L 36.3 C L 36.4 C Pulse Rate 85 91 80 Respiratory Rate 18 18 16 Blood Pressure 156/67 H 160/77 H 161/68 H Pulse Oximetry 98 100 98 Oxygen Delivery Oxygen Flow Rate 08/05/22 01:15 08/05/22 04:37 08/05/22 07:20 Temperature 36.4 C 36.5 C Pulse Rate 83 79 82 Respiratory Rate 16 16 18 Blood Pressure 157/73 H 127/60 Pulse Oximetry 100 99 98 Oxygen Delivery Room Air Oxygen Flow Rate 08/05/22 07:20 08/05/22 08:00 08/05/22 10:32 Temperature 36.4 C Pulse Rate 82 68 Respiratory Rate 18 18 Blood Pressure 141/52 H Pulse Oximetry 100 Oxygen Delivery Room Air Oxygen Flow Rate Intake/Output Intake/Output: Intake & Output 08/02/22 08/03/22 08/04/22 08/05/22 23:59 23:59 23:59 23:59 Intake Total 175 2180 Output Total 1050 Balance 175 1130 Meds/Results Medications: Active Medications Generic Name Dose Route Start Last Admin Trade Name Freq PRN Reason Stop Dose Admin Acetaminophen 1,000 mg 08/04/22 17:20 08/05/22 12:13 Acetaminophen 500 Mg Tablet PO 1,000 mg Q6H WILLI Administration Al Hydrox/Mg Hydrox/Simethicone 30 ml 08/05/22 04:34 Mag Hydrox/Al Hydrox/Simeth 30 Ml Udc PO Q6H PRN Indigestion Atorvastatin Calcium 20 mg 08/05/22 09:00 08/05/22 08:26 Atorvastatin 20 Mg Tablet PO 20 mg QAM WILLI Administration Candesartan Cilexetil 8 mg 08/05/22 09:00 08/05/22 08:26 Candesartan Cilexetil 8 Mg Tablet PO 8 mg QAM WILLI Administration Ciprofloxacin 500 mg 08/05/22 14:00 Ciprofloxacin 500 Mg Tab PO DAILY@1400 WILLI Cyanocobalamin 1,000 mcg 08/05/22 09:00 08/05/22 08:26 Cyanocobalamin 1,000 Mcg Tablet PO 1,000 mcg DAILY WILLI Administration Dextrose 12.5 gm 08/05/22 09:05 Dextrose 50% 25 Gm/50 Ml Syringe IV PUSH PRN PRN Hypoglycemia Protocol Enoxaparin Sodium 40 mg 08/05/22 09:00 08/05/22 08:27 Enoxaparin 40 Mg/0.4 Ml Syringe SUB-Q 40 mg DAILY WILLI Administration Glucagon 1 mg 08/05/22 09:05 Glucagon For Inj 1 Mg Vial IM PRN PRN Hypoglycemia Protocol Glucose 15 gm 08/05/22 09:05 Glucose Oral Gel 15 Gm Of Glucse In 37.5 Gm Tube PO PRN PRN Hypoglycemia Protocol L
[2022-08-05] MEDS: oxyCODONE HCL (*CRX) 2.5 MG TAB IR PO (14:24)
[2022-08-05 17:09] LABS: Glucose Point of Care 176 mg/dl (65-105)
[2022-08-05] MEDS: LATANOPROST 0.005% OP SOLN 2.5 ML BTL 1 DROP RIGHT EYE (21:16)
[2022-08-05 21:38] LABS: Glucose Point of Care 177 mg/dl (65-105)
[2022-08-06 00:05] VITALS: BP 122/48; PULSE 74; RESP 18; TEMP 37.4; O2SAT 100
[2022-08-06 04:29] VITALS: BP 136/54; PULSE 68; RESP 18; TEMP 36.6; O2SAT 97
[2022-08-06 05:31] LABS: Basophils Absolute Auto 0.1 K/mm3 (0.0-0.1); Basophils Percent Auto 0.6 % (0.2-1.2); Eosinophils Absolute Auto 0.2 K/mm3 (0-0.3); Eosinophils Percent Auto 2.1 % (0-4.4); Hematocrit 34.6 % (42.0-52.0); Hemoglobin 11.2 g/dL (14.0-18.0); Immature Granulocyte Absolute 0.04 K/mm3 (0.00-0.031); Immature Granulocyte Percent A 0.5 % (0-0.5); Lymphocytes Absolute Auto 1.78 K/mm3 (0.9-3.2); Lymphocytes Percent Auto 20.4 % (18.3-44.2); Mean Corpuscular HGB Conc 32.4 g/dl (32-36); Mean Corpuscular Hemoglobin 27.3 pg (26-34); Mean Corpuscular Volume 84.4 fl (80-100); Mean Platelet Volume 9.8 fl (7.4-10.4); Monocytes Absolute Auto 0.9 K/mm3 (0.1-0.6); Monocytes Percent Auto 10.4 % (2.6-8.5); Neutrophils Absolute Auto 5.8 K/mm3 (1.3-6.7); Platelet Count Result 200 k/mm3 (150-375); Red Cell Distribution Width 15.3 % (11.5-14.5); White Blood Count 8.7 K/mm3 (4.5-10.0)
[2022-08-06 05:36] LABS: Anion Gap 4 mmol/L (8-16); Blood Urea Nitrogen 9 mg/dL (9-20); Calcium 8.8 mg/dL (8.4-10.2); Carbon Dioxide 30 mmol/L (22-30); Chloride 96 mmol/L (98-107); Estimated CRCL calculation 78 ml/min; Estimated Glomerular Filt Rate > 60; Glucose 132 mg/dL (65-110); Potassium 4.2 mmol/L (3.4-5.0); Sodium 130 mmol/L (137-145)
[2022-08-06] MEDS: ACETAMINOPHEN 500 MG TABLET 1000 MG PO ×2 (05:47→14:22)
[2022-08-06 07:56] LABS: Glucose Point of Care 162 mg/dl (65-105)
[2022-08-06] MEDS: ATORVASTATIN 20 MG TABLET PO (08:20)
[2022-08-06] MEDS: CYANOCOBALAMIN 1,000 MCG TABLET 1000 MCG PO (08:20)
[2022-08-06] MEDS: PANTOPRAZOLE 40 MG TABLET PO (08:20)
[2022-08-06] MEDS: ENOXAPARIN 40 MG/0.4 ML SYRINGE SUB-Q (08:23)
[2022-08-06] MEDS: SALMETEROL XINAFOATE 50 MCG DISKUS 1 PUFF INHALATION (08:43)
[2022-08-06] MEDS: polyethylene glycoL 3350 17 GM POWD.PACK PO (08:46)
[2022-08-06 10:00] VITALS: BP 158/78; PULSE 74; RESP 12; TEMP 36.4; O2SAT 98
[2022-08-06] MEDS: TIMOLOL MALEATE 0.5% OP SOLN 5 ML BOTTLE 1 DROP RIGHT EYE (10:20)
[2022-08-06] MEDS: PSEUDOEPHEDRINE HCL 30 MG TABLET PO (10:21)
[2022-08-06 11:54] LABS: Glucose Point of Care 186 mg/dl (65-105)
--- NOTE | 2022-08-06 12:40 | PCCCNOTE ---
On 08/06/22, the student, [Emmie Gross ], provided care and completed [facility] documentation on this patient. I have reviewed the student's documentation and agree with the findings.
[2022-08-06 13:30] VITALS: BP 145/61; PULSE 83; RESP 16; TEMP 36.4; O2SAT 93
--- NOTE | 2022-08-06 13:56 | PM.DS ---
DS: Admitting Diagnosis Discharge Date 08/06/2022 Admitting Diagnosis Cecal polyp, hypertension, diabetes DS: Discharge Diagnosis Discharge Diagnosis (1) Cecal polyp: Code(s): K63.5 - Polyp of colon Status: Acute (2) Postoperative urinary retention: Code(s): N99.89 - Other postprocedural complications and disorders of genitourinary system; R33.8 - Other retention of urine Status: Acute (3) DM type 2 (diabetes mellitus, type 2): Qualifiers: Diabetes mellitus correction insulin use: without longwall foreman use Diabetes mellitus complication status: without complication Qualified Code(s): E11.9 - Type 2 diabetes mellitus without complications Code(s): E11.9 - Type 2 diabetes mellitus without complications Status: Acute (4) Benign essential hypertension: Code(s): I10 - Essential (primary) hypertension Status: Acute DS: Summary Hospital Course Reason for hospitalization: Cecal polyp Hospital Course: This is a 77-year-old man who presented for robotic assisted laparoscopic right hemicolectomy on 08/04/2022 for a large cecal polyp. Patient previously had undergone colonoscopy which identified the polyp but this was too large to remove endoscopically. Biopsies confirmed adenoma. Surgery was uncomplicated and patient was admitted to the surgical floor postoperatively. He was started on clear liquid diet initially and pain was controlled with oral and IV pain medications. He did have some postoperative urinary retention and required straight catheterization overnight the 1st hospital day. On postop day 1 he was able to urinate affectively on his own and had no more urinary retention issues. Hospitalist was consulted to help manage his home medications and comorbidities. He was tolerating a clear liquid diet and was and advanced to a full liquid diet on postop day 1. He was passing flatus but had not had a bowel movement. On postop day 2 he was advanced to a low-fiber diet. He tolerated this well and was continuing to pass flatus but had not had a bowel movement yet. He denied any nausea or bloating with eating. He was otherwise remaining hemodynamically stable. He was discharged on postop day 2. Pathology did come back and this showed evidence of tubular adenoma in the cecum. All margins were negative. Status at Discharge Functional status at discharge: independent ambulation Overall status at discharge: patient is progressing back to baseline Time Spent with Patient Time attestation: Total time spent providing and/or coordinating discharge services: Time spent: Less than 30 minutes Exam Const: General: comfortable, no acute distress and alert Orientation/consciousness: patient oriented x3 Resp: Effort & Inspection: normal respiratory effort Auscultation: clear to auscultation bilaterally Cardio: Rate: regular rate Rhythm: regular rhythm Heart sounds: S1 normal heart sound present and S2 normal heart sound present GI: Inspection: non-distended and incision (Intact with glue) GI Palp: Yes Soft to palpation, No Tenderness to palpation present (GI) and No Guarding due to palpation present (GI) Auscultation: normal bowel sounds DS: Data Data Completed and Pending Completed studies during hospitalization: Pending at discharge 08/04/22 15:26 Surgical [PTH] Routine Large intestine, right colon, hemicolectomy: - Tubular adenoma, 2.0 cm - Appendix with benign fibrous obliteration - One benign lymph node - Surgical margins negative for tubular adenoma Labs on day of discharge: Labs from last 24 hours 08/06/22 08/06/22 08/06/22 11:47 07:42 04:53 WBC 8.7 RBC 4.10 L Hgb 11.2 L Hct 34.6 L MCV 84.4 MCH 27.3 MCHC 32.4 RDW 15.3 H Plt Count 200 MPV 9.8 Immature Gran % (Auto) 0.5 Neut % (Auto) 66.0 Lymph % (Auto) 20.4 [place] % (Auto) 10.4 H Eos % (Auto) 2.1 Baso % (Auto) 0.6 Lymph # (Auto) 1.78 [place] # (Aut
== END 2022-08-06 15:20 | disposition home or self-care (01) | DRG 331 ==
LOC: ANHSURGERY 12:56 → ANH2MED 12:56
PROVIDERS: Nurse Practitioner Acute Care; Admitting Provider Surgery; PCP Internal Medicine; Visit Provider Surgery
PROC: 0DTF4ZZ Resection of Right Large Intestine, Percutaneous Endoscopic Approach (ICD-10-PCS; principal; 2022-08-04 12:30)
DX: D12.0 Benign neoplasm of cecum (principal); E11.22 Type 2 diabetes mellitus with diabetic chronic kidney disease; I12.9 Hypertensive chronic kidney disease with stage 1 through stage 4 chronic kidney disease, or unspecified chronic kidney disease; N18.9 Chronic kidney disease, unspecified; G47.33 Obstructive sleep apnea (adult) (pediatric); E78.5 Hyperlipidemia, unspecified; D50.9 Iron deficiency anemia, unspecified; N99.89 Other postprocedural complications and disorders of genitourinary system; R33.8 Other retention of urine; Z79.84 Long term (current) use of oral hypoglycemic drugs
CPT/HCPCS: 36415; 80048; 82948; 85025; 88307; 94640; A9270; J0690; J1100; J1650; J1815; J2250; J2270; J2370; J2405; J2704; J3010; J7030; J7120

== ENCOUNTER 2024-03-20 14:23 | Outpatient (CLI) | payer BC, SELFPAY ==
--- OUTSIDE RECORDS SUMMARY | 2024-03-20 15:11 | XMS_ITS | Referral Summary ---
Author Organization [facility] Office Building B Address [address] [place] [address] Care Team Providers Care Slip Caster Name Role Phone Brett Puentes MD Primary Care Provider [phone] Allergies Active Allergy Reactions Criticality Noted Date Comments Aspirin Anaphylaxis High 02/23/2022 Nsaids (Non-Steroidal Anti-I nflammatory Drug) Anaphylaxis High 02/23/2022 Medications atorvastatin (LIPITOR) 40 mg tablet 12/14/2021 Active betamethasone dipropionate (DEL-BETA) 0.05 % cream 02/12/2022 Active OneTouch Ultra Test strip 12/11/2021 Active candesartan (ATACAND) 16 mg tablet 02/03/2022 Active Jardiance 25 mg tablet 12/15/2021 Active Flovent Diskus 100 mcg/actuation diskus inhaler 01/30/2022 Acti ve folic acid (FOLVITE) 1 mg tablet 02/03/2022 Active glimepiride (AMARYL) 4 mg tablet 12/14/2021 Active icosapent ethyL (VASCEPA) 1 gram capsule 02/03/2022 Active latanoprost (XALATAN) 0.005 % ophthalmic solution 02/03/2022 Active metFORMIN (GLUCOPHAGE) 1,000 mg tablet 02/17/2022 Active niacin ER (NIASPAN) 1,000 mg CR tablet 12/11/2021 Active Serevent Diskus 50 mcg/dose diskus inhaler 01/30/2022 Active Januvia 100 mg tablet 12/11/2021 Active timoloL (ISTALOL) 0.5 % drops, once daily ophthalmic solution 12/11/2021 Active Active Problems Problem Noted Date Diagnosed Date Chronic reactive otitis externa of right ear Bilateral impacted cerumen 02/23/2022 Social History Tobacco Use Types Packs/Day Years Used Date Smoking Tobacco: Never Smokeless Tobacco: Never Tobacco Cessation:Counseling Given: Not Answered Personal Safety Answer Date Recorded Getting School Help Needed Not on file 02/13 Sex and Gender Information Value Date Recorded Sex Assigned at Not on file 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 Gender Identity Not on file Sexual Orientation Not on file Last Filed Vital Signs Vital Sign Reading Time Taken Comments Blood Pressure - - Pulse - - Temperature - - Respiratory Rate 18 02/23/2022 3:04 PM CAR REPAIRER HELPER Oxygen Saturation - - Inhaled Oxygen Concentration - - Weight 115.7 kg (255 lb) 02/23/2022 3:04 PM CAR REPAIRER HELPER Height 198.1 cm (6' 6 ) 02/23/2022 3:04 PM CAR REPAIRER HELPER Body Mass Index 29.47 02/23/2022 3:04 PM CAR REPAIRER HELPER Plan of Treatment Not on file Insurance [facility] [address] Care Teams Slip Caster Relationship Specialty Start Date End Date Brett Puentes MD [address] [facility] [address] [place], [place] [id number] PCP - General Internal Medicine 02/17/22
--- OUTSIDE RECORDS SUMMARY | 2024-03-20 15:11 | XMS_ITS | Continuity of Care Document ---
Author Organization [facility] Address [address] [place] [address] Phone Care Team Providers Care Networker Name Role Phone Osbaldo Dotson Unavailable Unavailable Procedures Procedure Date Office/outpatient Visit, Est Office/outpatient Visit, Est Visual Field Examination(s) Office/outpatient Visit, Est Fundus Photography W/ Report Office/outpatient Visit, Est Visual Field Examination(s) Office/outpatient Visit, Est Fundus Photography W/ Report Office/outpatient Visit, Est Visual Field Examination(s) Office/outpatient Visit, Est Eye Exam & Treatment Fundus Photography W/ Report Post-op Follow-up Visit Refraction Post-op Follow-up Visit Remove Cataract, Insert Lens Eye Exam Established Pt IOLMaster-Professional Visual Field Examination(s) Advance Directives Directive Yes / No Effective Date File Name No Information Encounters Encounter Description Practice Location Reason(s) For Visit Diagnoses Date Provider Providers Copied on Encounter Office/outpat ient Visit, [facility], [address], [place], [place], [address], [place] tel:[phone] [facility] No Information Nov-0 3-201 0 Doisy Edcatrachito. [address] , [address], [place], [address], [place]. tel:[phone] [facility], [address] [place] [address] [address], [place], [place], [address], [place] tel:[phone] [facility] No Information Sep-2 2-201 0 Doisy Edcatrachito. [address] , [address], [place], [place], [facility], [place]. tel:[phone] [facility], [address] [place] [address] [address], [place], [place], [address], [place] tel:[phone] [facility] No Information Sep-0 3-201 0 Doisy Edcatrachito. [address] [facility] [address], [address], [place], [facility], [place]. tel:[phone] Referring Provider: Osbaldo Winter, [facility] [address], [place], [facility]. tel:[phone] Office/outpat ient Visit, [facility], [address] [place] [address] [address], [place], [place], [address], [place] tel:[phone] [facility] No Information Apr-1 9-201 0 Nila Edcatrachito. [address], [address], [place], [facility], [place]. tel:[phone] Referring Provider: Osbaldo Winter, Sh[address], [place], [facility]. tel:[phone] Office/outpat ient Visit, [facility], [address] [place] [address] [address], [place], [place], [address], [place] tel:[phone] [facility] No Information Dec-1 4-200 9 Doisy Edcatrachito. [address] , [address], [place], [facility], [place]. tel:[phone] [facility], [address] [place] [address] [address], [place], [place], [address], [place] tel:[phone] [facility] No Information 1 0-200 9 Nila Roblero. [address], [address], [place], [facility], . tel:[phone] Referring Provider: Osbaldo Winter, [employer] [address], [place], [facility]. tel:[phone] Office/outpat ient Visit, [facility], [address] [place] [address] [address], [place], [place], [address], tel:[phone] [facility] No Information Apr-0 9-200 9 Nila Roblero. [facility] [address], [place], [facility], [place]. tel:[phone] Referring Provider: Osbaldo Winter, Shaina [facility] [address], [place], [facility]. tel:[phone] Office/outpat ient Visit, [facility], [address] [place] [address] [address], [place], [place], [address], [place] tel:[phone] SEC [facility] No Information Oct-0 8-200 8 Nila Roblero. [facility] [address], [address], [place], [facility], [place]. tel:[phone] [facility], [address] [place] [address] [address], [place], [place], [address], [place] tel:[phone] [facility] No Information Sep-1 9-200 8 Nila Roblero. [address], [address], [place], [facility], [place]. tel:[phone] Referring Provider: Shaina [address], [place], [facility]. tel:[phone] Office/outpat ient Visit, Est [facility], [address], [place], [place], [address], [place] tel:[phone] [facility] No Information May-2 4-200 8 Nila Edcatrachito. [address] [facility] [address], [address], [place], [facility], [place]. tel:[phone] [facility], [address], [place], [place], [address], [place] tel:[phone] [facility] No Information Mar- 7200 8 Nila Roblero. [address] [facility] [address], [address], [place], [facility], [place]. tel:[phone] Referring Provider: Osbaldo Winter, [address] [place], [place] [address]ate [address], [place], [facility]. tel:[phone] Located [facility], [address] [place] [address] [address], [place], [place], [address], [place] tel:[phone] [facility] No Information 1-200 7 Nila Edcatrachito. [address] [facility] [address], [address], [place], [facility], [place]. tel:[phone] Located [facility], [address], [place], [place], [address], [place] tel:[phone] [facility] No Information Jul-2 2-200 7 Nila Edcatrachito. [address] [facility] [address], [address], [place], [facility], [place]. tel:[phone] [facility], [address], [place], [place], [address], [place] tel:[phone] [facility] No Information Jul-2 1-200 7 Doikayli [address]lero. [address] , [address], [place], [facility], . tel:[phone] [facility], [address] [place] [address] [address], [place], [place], [address], tel:[phone] [facility] No Information 200 7 Nila Roblero. [address] [place] [address] , [address], [place], [facility], . tel:[phone] Referring Provider: Shaina Tolentino [facility] [address], [place], [facility]. tel:[phone] Located [facility], [address] [place] [address] [address], [place], [place], [address], tel:[phone] [facility] No Information 7 Nila Roblero. [address] [place] [address] , [address], [place], [facility], . tel:[phone] Referring Provider: Shaina Tolentino [facility] [address], [place], [facility]. tel:[phone] Family History Family Member Type Diagnosis Age At Onset No Information Payers Payer name Insurance type Covered alliance party ID [facility]iza t[id number] Social History Type Description Quantity Date Captured Comments Sex Male Smoking Status No Information Chief Complaint And Reason For Visit No Information Reason For Referral Reason For Referral No Information History Of Present Illness Encounter Date Complaint History Of Prese nt Illness No Information Functional Status Date Functional Assessmen t No Information Instructions Date Instruction Additional Infor mation No Information Assessments Type Assessment Date No Information Patient Care Teams Name Effective Dates (start - stop) Status Members No Information
--- OUTSIDE RECORDS SUMMARY | 2024-03-20 15:11 | XMS_ITS | Clinical Summary ---
Author Organization [facility] Medical Office Building B Address [address] [place] [address] Care Team Providers Care Demolition Hammer Operator Name Role Phone Brett Puentes MD Primary Care Provider [phone] Allergies Active Allergy Reactions Criticality Noted Date [...] of right ear Bilateral impacted cerumen 02/23/2022 Surgical History Surgery Date Site/Laterality Comments CATARACT EXTRACTION 02/07/2001 - 02/06/2002 Left EYE SURGERY 02/07/2006 - 02/06/2007 Left RETINAL DETACHMENT SURGERY 02/07/2011 - 02/07/2012 Left Medical History Medical History Date Comments Allergic rhinitis Asthma Diabetes (HCC) Hypertension Family History Medical History Relation Name Comments Heart attack Father Lung cancer Father Dementia Mother Cancer Other Relation Name Status Comments Father Mother Other Social History Tobacco Use Types Packs/Day Years Used Date Smoking Tobacco: Never Smokeless Tobacco: Never Tobacco Cessation:Counseling Given: Not Answered Personal Safety Answer Date Recorded Getting School Help Needed Not on file 02/13 Sex and Gender Information Value Date Recorded Sex Assigned at Not on file 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 Gender Identity Not on file Sexual Orientation Not on file Obstetrics History Last Filed Vital Signs Vital Sign Reading Time Taken Comments Blood Pressure - - Pulse - - Temperature - - Respiratory Rate 18 02/23/2022 3:04 PM GRAPHIC PRODUCTION ARTIST Oxygen Saturation - - Inhaled Oxygen Concentration - - Weight 115.7 kg (255 lb) 02/23/2022 3:04 PM GRAPHIC PRODUCTION ARTIST Height 198.1 cm (6' 6 ) 02/23/2022 3:04 PM GRAPHIC PRODUCTION ARTIST Body Mass Index 29.47 02/23/2022 3:04 PM GRAPHIC PRODUCTION ARTIST Plan of Treatment Health Maintenance Due Date Last Done Comments Depression Screening 1945 Fall Risk Assessment 1945 Hepatitis C Screening 1945 DTaP/Tdap/Td Vaccine (1 - Tdap) 1958 Hepatitis B Screening 1965 Zoster Vaccine (1 of 2) 1997 Well Visit 65+ 02/26/2012 Pneumococcal vaccine 65+ (2 of 2 - PPSV23 or PCV20) 02/04/2018 02/04/2017 Covid-19 Vaccine ( - 2023-2 5 season) 2023 10/22/2021, 05/18/2021, 11/03/2020, Additional history exists Influenza Vaccine (#1) 2023 , 10/15/2020, 11/06/2019, Additional history exists Insurance [facility] Care Teams Demolition Hammer Operator Relationship Specialty Start Date End Date Brett Puentes MD [address] [facility] [address] [place] [address] PCP - General Internal Medicine 02/17/22
== END 2024-03-20 14:24 | disposition home or self-care (01) ==
LOC: ANHAUDIO 14:23
PROVIDERS: PCP Internal Medicine; Visit Provider Otolaryngology
DX: H65.21 Chronic serous otitis media, right ear (principal); H90.6 Mixed conductive and sensorineural hearing loss, bilateral; J32.2 Chronic ethmoidal sinusitis
CPT/HCPCS: 92557; 92567

== ENCOUNTER 2024-03-21 08:52 | Outpatient (CLI) | payer BC, SELFPAY ==
--- NOTE | ~2024-03-21 | CT_ITS ---
EXAMINATION: CT IAC/mastoids BI wo con DATE: 03/21/2024 09:11 INDICATION: Chronic mastoiditis, unspecified. TECHNIQUE: Computed tomography (CT) of the temporal bones was performed without intravenous contrast. Automated exposure control and iterative reconstruction technique were employed. The dose-length pro duct was 277.19 mGy-cm. COMPARISON: None FINDINGS: There are likely changes of ocular lens replacement surgeries. There are changes of left-si ded scleral banding procedure. RIGHT TEMPORAL BONE: The internal auditory canal, cochlea, vestibule, semicircular canals, vestibular aqueduct, carotid ca nal, jugular bulb, facial nerve course, and ossicles are normal. There is material in Prussak space. Scutum is normal. There is material in the external auditory canal including abutting the tympanic me mbrane. The mastoid air cells are clear. LEFT TEMPORAL BONE: The internal auditory canal, cochlea, vestibule, semicircular canals, vestibular aqueduct, carotid ca nal, jugular bulb, facial nerve course, ossicles, tympanic membrane, and scutum are normal. There is trace material in the Prussak space. The tympanic membrane is normal. The external auditory canal is normal. There is a trace left mastoid effusion. IMPRESSION: 1. Material in right external auditory canal and in right Prussak space. No erosions of bone. 2. Trace material in left Prussak space. No erosions of bone. 3. Trace left mastoid effusion. Reviewed, dictated and finalized at location A. MATERNAL CHILD IMPRESSION: 1. Material in right external auditory canal and in right Prussak space. No ero sions of bone. 2. Trace material in left Prussak space. No erosions of bone. 3. Trace left mastoid effusion.
--- OUTSIDE RECORDS SUMMARY | 2024-03-21 09:30 | XMS_ITS | Clinical Summary ---
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 Gender Identity Not on file Sexual Orientation Not on file Obstetrics History Last Filed Vital Signs Vital Sign Reading Time Taken Comments Blood Pressure - - Pulse - - Temperature - - Respiratory Rate 18 02/23/2022 3:04 PM SEAMER ELASTIC BAND Oxygen Saturation - - Inhaled Oxygen Concentration - - Weight 115.7 kg (255 lb) 02/23/2022 3:04 PM SEAMER ELASTIC BAND Height 198.1 cm (6' 6 ) 02/23/2022 3:04 PM SEAMER ELASTIC BAND Body Mass Index 29.47 02/23/2022 3:04 PM SEAMER ELASTIC BAND Plan of Treatment Health Maintenance Due Date [...] , 10/15/2020, 11/06/2019, Additional history exists Insurance [facility] Care Teams Driver Helper Relationship Specialty Start Date End Date Brett Puentes MD [address] [facility] [address] [place] [address] PCP - General Internal Medicine 02/17/22
--- OUTSIDE RECORDS SUMMARY | 2024-03-21 09:30 | XMS_ITS | Referral Summary ---
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 HELPER Gender Identity Not on file Sexual Orientation Not on file Last Filed Vital Signs Vital Sign Reading Time Taken Comments Blood Pressure - - Pulse - - Temperature - - Respiratory Rate 18 02/23/2022 3:04 PM WELDER HELPER Oxygen Saturation - - Inhaled Oxygen Concentration - - Weight 115.7 kg (255 lb) 02/23/2022 3:04 PM WELDER HELPER Height 198.1 cm (6' 6 ) 02/23/2022 3:04 PM WELDER HELPER Body Mass Index 29.47 02/23/2022 3:04 PM WELDER HELPER Plan of Treatment Not on file Insurance [facility] [address] Care Teams Swine Nutritionist Relationship Specialty Start Date End Date Brett Puentes MD [address] [facility] [address] [place], [place] [id number] PCP - General Internal Medicine 02/17/22
--- OUTSIDE RECORDS SUMMARY | 2024-03-21 09:30 | XMS_ITS | Continuity of Care Document ---
Author Organization [facility] Address [address] [place] [address] Phone Care Team Providers Care Performing Arts Technicians Name Role Phone Osbaldo Dotson Unavailable Unavailable [...] Copied on Encounter [facility]pat [facility], [facility], [address], [place], [place], [address], [place] tel:[phone] [facility] No Information Nov-0 3-201 0 Doisy Edcatrachito. [address] , [address], [place], [address], [place]. tel:[phone] [facility]pat [facility], [facility], [address] [place] [address] [address], [place], [place], [address], [place] tel:[phone] [facility] No Information Sep-2 2-201 0 Doisy Edcatrachito. [address] , [address], [place], [facility], [place]. tel:[phone] [facility], [address] [place] [address] [address], [place], [place], [address], [place] tel:[phone] [facility] No Information Sep-0 3-201 0 Doisy Edcatrachito. [address] [facility] [address], [address], [place], [facility], [place]. tel:[phone] Referring Provider: Osbaldo Winter, [facility] [address], [place], [facility]. tel:[phone] Office/outpat ient Visit, [facility], [address] [place] [address] [address], [place], [place], [address], [place] tel:[phone] [facility] No Information Apr-1 9-201 0 Nila Ed[address]achito. [address], [address], [place], [facility], [place]. tel:[phone] Referring Provider: Osbaldo Winter, Sh[address], [place], [facility]. tel:[phone] Office/outpat ient Visit, [facility], [address] [place] [address] [address], [place], [place], [address], [place] tel:[phone] [facility] No Information Dec-1 4-200 9 Doisy Ed[address]. [address] , [address], [place], [facility], [place]. tel:[phone] [facility], [address] [place] [address] [address], [place], [place], [address], [place] tel:[phone] [facility] No Information 1 0-200 9 Nila Roblero. [address], [address], [place], [facility], . tel:[phone] Referring Provider: Osbaldo Winter, [employer] [address], [place], [facility]. tel:[phone] Office/outpat ient Visit, [facility], [address] [place] [address] [address], [place], [place], [address], tel:[phone] [facility] No Information Apr-0 9-200 9 Nila Roblero. [facility] [address], [place], [facility], [place]. tel:[phone] Referring Provider: Osbaldo Winter, Shaina [facility] [address], [place], [facility]. tel:[phone] Office/outpat ient Visit, [facility], [address] [place] [address] [address], [place], [place], [address], [place] tel:[phone] [facility] No Information Oct-0 8-200 8 Nila Roblero. [facility] [address], [address], [place], [facility], [place]. tel:[phone] [facility], [address] [place] [address] [address], [place], [place], [address], [place] tel:[phone] [facility] No Information Sep-1 9-200 8 Nila Roblero. Shaina [address], [address], [place], [facility], [place]. tel:[phone] Referring Provider: Shaina [address], [place], [facility]. tel:[phone] Office/outpat ient Visit, Est [facility], [address], [place], [place], [address], [place] tel:[phone] [facility] No Information May-2 4-200 8 Nila Edcatrachito. [address] [facility] [address], [address], [place], [facility], [place]. tel:[phone] [facility], [address], [place], [place], [address], [place] tel:[phone] [facility] No Information Mar- 7200 8 Nila Roblero. [address] [facility] [address], [address], [place], [facility], [place]. tel:[phone] Referring Provider: Osbaldo Winter, [address] [place], [place] [address]ate [address], [place], [facility]. tel:[phone] [facility], [address] [place] [address] [address], [place], [place], [address], [place] tel:[phone] [facility] No Information 1-200 7 Nila Edcatrachito. [address] [facility] [address], [address], [place], [facility], [place]. tel:[phone] [facility], [address], [place], [place], [address], [place] tel:[phone] [facility] No Information Jul-2 2-200 7 Nila Edcatrachito. [address] [facility] [address], [address], [place], [facility], [place]. tel:[phone] [facility], [address], [place], [place], [address], [place] tel:[phone] [facility] No Information Jul-2 1-200 7 Doikayli Roblero. [address] , [address], [place], [facility], . tel:[phone] [facility], [address] [place] [address] [address], [place], [place], [address], tel:[phone] [facility] No Information 200 7 Nila Roblero. [address] [place] [address] , [address], [place], [facility], . tel:[phone] Referring Provider: Shaina Tolentino [facility] [address], [place], [facility]. tel:[phone] [facility], [address] [place] [address] [address], [place], [place], [address], tel:[phone] [facility] No Information 7 Nila Roblero. [address] [place] [address] , [address], [place], [facility], . tel:[phone] Referring Provider: Shaina Tolentino [facility] [address], [place], [facility]. tel:[phone] Family History Family Member Type Diagnosis Age At Onset No Information Payers Payer name Insurance type Covered constitution party ID Authoriza tion(s) [id number] Social History Type Description Quantity Date Captured [...]
== END 2024-03-21 08:53 | disposition home or self-care (01) ==
PROVIDERS: PCP Internal Medicine; Visit Provider Otolaryngology
DX: H70.13 Chronic mastoiditis, bilateral (principal); H71.21 Cholesteatoma of mastoid, right ear; H65.21 Chronic serous otitis media, right ear; H90.6 Mixed conductive and sensorineural hearing loss, bilateral; H61.891 Other specified disorders of right external ear; J32.2 Chronic ethmoidal sinusitis
CPT/HCPCS: 70480

== ENCOUNTER 2024-04-16 13:36 | Outpatient (CLI) | payer BC, SELFPAY ==
--- NOTE | ~2024-04-16 | US_ITS ---
EXAMINATION: US venous doppler LE RT DATE: 04/16/2024 12:42 INDICATION: Right lower limb edema. TECHNIQUE: Grayscale ultrasound images without and with compression and Doppler ultrasound images of the right lower extremity veins were obtained. COMPARISON: None. FINDINGS: The visualized portions of right common femoral vein, profunda (deep) femoral vein, popliteal vein, p eroneal veins, posterior tibial veins, and greater saphenous vein outflow are patent. There is nonocc lusive echogenic thrombus in right femoral vein. IMPRESSION: 1. 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 Reviewed, dictated and finalized at location B.
[2024-04-16 12:32] LABS: Basophils Percent Auto 0.3 % (0.2-1.2); Eosinophils Absolute Auto 0.2 K/mm3 (0-0.3); Eosinophils Percent Auto 1.7 % (0-4.4); Hematocrit 38.6 % (42.0-52.0); Hemoglobin 12.5 g/dL (14.0-18.0); Immature Granulocyte Absolute 0.03 K/mm3 (0.00-0.031); Immature Granulocyte Percent A 0.2 % (0-0.5); Lymphocytes Absolute Auto 1.68 K/mm3 (0.9-3.2); Lymphocytes Percent Auto 12.9 % (18.3-44.2); Mean Corpuscular HGB Conc 32.4 g/dl (32-36); Mean Corpuscular Hemoglobin 28.7 pg (26-34); Mean Corpuscular Volume 88.5 fl (80-100); Mean Platelet Volume 9.9 fl (7.4-10.4); Monocytes Absolute Auto 1.5 K/mm3 (0.1-0.6); Monocytes Percent Auto 11.2 % (2.6-8.5); Neutrophils Absolute Auto 9.6 K/mm3 (1.3-6.7); Neutrophils Percent Auto 73.7 % (45.5-73.1); Platelet Count Result 206 k/mm3 (150-375); Red Blood Count 4.36 M/mm3 (4.6-6.20); Red Cell Distribution Width 14.7 % (11.5-14.5)
[2024-04-16 13:00] LABS: CRP 14.2 mg/dL (<1.0); Uric Acid 4.6 mg/dL (3.5-8.5)
--- OUTSIDE RECORDS SUMMARY | 2024-04-16 13:48 | XMS_ITS | Referral Summary ---
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 Gender Identity Not on file Sexual Orientation Not on file Last Filed Vital Signs Vital Sign Reading Time Taken Comments Blood Pressure - - Pulse - - Temperature - - Respiratory Rate 18 02/23/2022 3:04 PM BOILER WATER TESTER Oxygen Saturation - - Inhaled Oxygen Concentration - - Weight 115.7 kg (255 lb) 02/23/2022 3:04 PM BOILER WATER TESTER Height 198.1 cm (6' 6 ) 02/23/2022 3:04 PM BOILER WATER TESTER Body Mass Index 29.47 02/23/2022 3:04 PM BOILER WATER TESTER Plan of Treatment [place] [address] Care Teams Press Room Supervisor Relationship Specialty Start Date End Date Brett Puentes MD PCP - General Internal Medicine 02/17/22
--- OUTSIDE RECORDS SUMMARY | 2024-04-16 13:48 | XMS_ITS | Clinical Summary ---
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 EVALUATION ADVISOR Gender Identity Not on file Sexual Orientation Not on file Obstetrics History Last Filed Vital Signs Vital Sign Reading Time Taken Comments Blood Pressure - - Pulse - - Temperature - - Respiratory Rate 18 02/23/2022 3:04 PM EVALUATION ADVISOR Oxygen Saturation - - Inhaled Oxygen Concentration - - Weight 115.7 kg (255 lb) 02/23/2022 3:04 PM EVALUATION ADVISOR Height 198.1 cm (6' 6 ) 02/23/2022 3:04 PM EVALUATION ADVISOR Body Mass Index 29.47 02/23/2022 3:04 PM EVALUATION ADVISOR Plan of Treatment Health Maintenance Due Date Last Done Comments Depression Screening 1945 Fall Risk Assessment 1945 Hepatitis C Screening 1945 DTaP/Tdap/Td Vaccine (1 - Tdap) 1958 Hepatitis B Screening 1965 Zoster Vaccine (1 of 2) 1997 Well Visit 65+ 02/26/2012 Pneumococcal vaccine 65+ (2 of 2 - PPSV23) 02/04/2018 02/04/2017 Covid-19 Vaccine (6 - 2023-2 5 season) 2023 10/22/2021, 05/18/2021, 11/03/2020, Additional history exists Influenza Vaccine (#1) 2023 , 10/15/2020, 11/06/2019, Additional history exists Insurance [facility] Care Teams Wet Plant Operator Relationship Specialty Start Date End Date Brett Puentes MD PCP - General Internal Medicine 02/17/22
--- OUTSIDE RECORDS SUMMARY | 2024-04-16 13:48 | XMS_ITS | Continuity of Care Document ---
Author Organization [facility] Address [address] [place] [address] Phone Care Team Providers Care Fire Observer Name Role Phone Osbaldo Dotson Unavailable Unavailable [...] Copied on Encounter [facility]outpat ient [facility], [address], [place], [place], [id number], [place] tel:[phone] [facility] No Information Nov-0 3-201 0 Doisy Edcatrachito. [address] , [address], [place], [address], [place]. tel:[phone] [facility]pat [facility], [facility], [address] [place] [address] [address], [place], [place], [id number], [place] tel:[phone] [facility] No Information Sep-2 2-201 0 Doisy Edcatrachito. [address] , [address], [place], [place], [facility], [place]. tel:[phone] [facility], [address] [place] [address] [address], [place], [place], [id number], [place] tel:[phone] [facility] No Information Sep-0 3-201 0 Doisy Edcatrachito. [address] [facility], [address], [place], [place], [facility], [place]. tel:[phone] Referring Provider: Osbaldo Winter, [facility] [address], [place], [place], [facility]. tel:[phone] Office/outpat ient Visit, [facility], [address] [place] [address] [address], [place], [place], [id number], [place] tel:[phone] [facility] No Information Apr-1 9-201 0 Nila Edcatrachito. [address], [address], [place], [place], [facility], [place]. tel:[phone] Referring Provider: Osbaldo Winter, [address], [place], [facility]. tel:[phone] Office/outpat ient Visit, [facility], [address] [place] [address] [address], [place], [place], [address], [place] tel:[phone] [facility] No Information Dec-1 4-200 9 Doisy Edcatrachito. [address] , [address], [place], [place], [facility], [place]. tel:[phone] [facility], [address] [place] [address] [address], [place], [place], [id number], [place] tel:[phone] [facility] No Information 1 0-200 9 Nila Roblero. [address], [address], [place], [place], [facility], . tel:[phone] Referring Provider: Osbaldo Winter, [address], [place], [facility]. tel:[phone] Office/outpat ient Visit, [facility], [address] [place] [address] [address], [place], [place], [id number], tel:[phone] [facility] No Information Apr-0 9-200 9 Nila Roblero. [facility] [address], [place], [facility], [place]. tel:[phone] Referring Provider: Osbaldo Winter, [facility] [address], [place], [facility]. tel:[phone] Office/outpat ient Visit, [facility], [address] [place] [address] [address], [place], [place], [id number], [place] tel:[phone] [facility] No Information Oct-0 8-200 8 Nila Roblero. [facility] [address], [address], [place], [facility], [place]. tel:[phone] [facility], [address] [place] [address] [address], [place], [place], [id number], [place] tel:[phone] [facility] No Information Sep-1 9-200 8 Nila Roblero. [address], [address], [place], [facility], [place]. tel:[phone] Referring Provider: Shaina [address], [place], [facility]. tel:[phone] Office/outpat ient Visit, [facility], [address], [place], [place], [address], [place] tel:[phone] [facility] No Information May-2 4-200 8 Nila Edcatrachito. [address] [facility], [address], [place], [facility], [place]. tel:[phone] [facility], [address], [place], [place], [address], [place] tel:[phone] [facility] No Information Mar- 7200 8 Nila Roblero. [address] [facility] [address], [address], [place], [facility], [place]. tel:[phone] Referring Provider: Osbaldo Winter, [address] [place], [place] [address]ate [address], [place], [place], [facility]. tel:[phone] [facility], [address] [place] [address] [address], [place], [place], [address], [place] tel:[phone] [facility] No Information 1-200 7 Nila Edcatrachito. [address] [facility], [address], [place], [facility], [place]. tel:[phone] [facility], [address], [place], [place], [id number], [place] tel:[phone] [facility] No Information Jul-2 2-200 7 Nila Edcatrachito. [address] [facility] [address], [address], [place], [facility], [place]. tel:[phone] [facility], [address], [place], [place], [address], [place] tel:[phone] [facility] No Information Jul-2 1-200 7 Doikayli Roblero. [address] , [address], [place], [facility], . tel:[phone] [facility], [address] [place] [address] [address], [place], [place], [id number], tel:[phone] [facility] No Information 200 7 Nila Roblero. [address] [place] [address] , [address], [place], [facility], . tel:[phone] Referring Provider: Shaina [facility]ino [facility] [address], [place], [facility]. tel:[phone] [facility], [address] [place] [address] [address], [place], [place], [id number], tel:[phone] [facility] No Information 7 Nila Roblero. [address] [place] [address] , [address], [place], [facility], . tel:[phone] Referring Provider: Shaina [facility]ino [facility] [address], [place], [facility]. tel:[phone] Family History Family Member Type Diagnosis Age At Onset No Information Payers Payer name Insurance type Covered democrat [id number] Social History Type Description Quantity Date Captured [...]
[2024-04-16 14:15] LABS: Erythrocyte Sedimentation Rate 52 mm/hr (0-20)
[2024-04-16 14:26] LABS: Prothrombin Time 13.8 Seconds (11.1-14.7)
== END 2024-04-16 13:37 | disposition home or self-care (01) ==
PROVIDERS: PCP Internal Medicine; Visit Provider Internal Medicine
DX: I82.411 Acute embolism and thrombosis of right femoral vein (principal); E11.9 Type 2 diabetes mellitus without complications; I10 Essential (primary) hypertension; Z79.899 Other long term (current) drug therapy
CPT/HCPCS: 36415; 84550; 85025; 85610; 85652; 86140; 93971

== ENCOUNTER 2024-11-26 10:12 | Emergency (ER) | payer BC, SELFPAY ==
[2024-11-26] VITALS (11 sets, daily range): BP systolic 119–176; BP diastolic 54–75; PULSE 70–88; RESP 15–24; TEMP 35.7; O2SAT 98–100
--- NOTE | ~2024-11-26 | US_ITS ---
EXAMINATION: US venous doppler LE , 11/26/2024 11:57 CDT HISTORY: swelling COMPARISON: None Technique: Yang-scale and color Doppler images were attempted of the lower saphenofemoral junction, common femoral vein,superficial femoral vein, proximal deep femoral vein, proximal deep femoral vein, popliteal vein and posterior tibial veins. Findings: Deep Venous System:Normal flow, augmentation and compressibility. No echogenic thrombus identified. Superficial Venous SystemNo superficial thrombophlebitis. Soft tissues: Soft tissues are unremarkable. Impression: Negative for DVT. Reviewed, dictated and finalized at location P. Impression: Negative for DVT.
--- NOTE | 2024-11-26 12:10 | ED.GENADULT ---
HPI - General Adult General Chief complaint: Extremity Problem,Nontraumatic Stated complaint: Left leg swelling/pain/redness Time Seen by Provider: 11/26/24 11:43 History of Present Illness HPI narrative: Patient is a 79-year-old male who presents ER with pain to left lower extremity. Ongoing for almost a week. Red and hot. Difficulty bearing weight due to pain. He has developed edema going up the leg. No fevers or chills. Recently diagnosed with DVT on the right side but not the left side. He has been taking Xarelto without issue. Related Data Home Medications ?Medication ?Instructions ?Recorded ?Confirmed ?Last Taken ?Type Sudafed 1 dose PO DAILY 07/04/20 10/24/24 08/03/22 History latanoprost 0.005 % eye drops 1 drp RIGHT EYE DAILY 11/26/21 10/24/24 08/03/22 History timolol maleate 0.5 % once daily 1 drp RIGHT EYE DAILY 06/02/22 10/24/24 08/04/22 History eye drops cyanocobalamin (vitamin B-12) 1,000 mcg PO DAILY 07/26/22 10/24/24 08/03/22 History 1,000 mcg capsule doxylamine succinate 25 mg tablet 25 mg PO QHS PRN 01/25/23 10/24/24 Unknown History (Unisom (doxylamine)) cholecalciferol (vitamin D3) 50 50 mcg PO DAILY 02/16/24 10/24/24 Unknown History mcg (2,000 unit) capsule acetaminophen 500 mg tablet 500 mg PO Q6H PRN 03/07/24 10/24/24 Unknown History (Tylenol Extra Strength) ferrous sulfate 143 mg PO DAILY 09/27/24 10/24/24 Unknown History Allergies Allergy/AdvReac Type Severity Reaction Status Date / Time aspirin Allergy Unknown Anaphylaxis Verified 11/26/24 10:13 NSAIDS (Non-Steroidal Allergy Unknown Anaphylactic Verified 11/26/24 10:13 Anti-Inflamma Shock Review of Systems Review of Systems: All systems reviewed & are unremarkable except as noted in HPI and below Constitutional: Constitutional: Reports no additional constitutional complaints ENT: Reports system reviewed and no additional complaints, except as documented Cardiovascular: Cardiovascular: Reports no additional cardiovascular complaints Respiratory: Respiratory: Reports no additional respiratory complaints Gastrointestinal: Gastrointestinal: Reports no additional gastrointestinal complaints Musculoskeletal: Musculoskeletal: Reports no additional musculoskeletal complaints Integumentary/Breasts: Skin/Breast: Reports system reviewed and no additional complaints, except as docu [facility] Past Medical History Medical History (Reviewed 10/10/24 @ 13:55 by Maryanne Martinez [facility]) BMI 32.0-32.9,adult Follow up Encounter for Medicare annual wellness exam Personal history of COVID-19 BMI 28.0-28.9,adult Asthma Ear drainage right Encounter for routine adult health examination with abnormal findings Iron deficiency anemia BMI 29.0-29.9,adult Rib pain on left side Light headed Abdominal pain of unknown cause BMI 30.0-30.9,adult Otitis Diarrhea Impacted cerumen, left ear External otitis of right ear Vitamin D deficiency Hx of retinal detachment BMI 31.0-31.9,adult Impacted cerumen of both ears Impacted cerumen of right ear Encounter for preventive health examination Blindness of left eye CKD (chronic kidney disease) CHEMA on CPAP Colon cancer screening History of colon polyps Encounter for routine adult health examination without abnormal findings BMI 33.0-33.9,adult Mild reactive airways disease Elevated homocysteine On oysterman drug therapy Hyperlipidemia Benign essential hypertension DM type 2 (diabetes mellitus, type 2) Surgical History Surgical History History of hemicolectomy Lap right hemicolectomy, da Danielle assisted 08/04/22 History of eye surgery Family History Family History Mother Family history of Alzheimer's disease Hypertension Father Acute myocardial infarction Family history of coronary artery disease Sibling Family history of diabetes mellitus in first degree relative Family history of coronary artery disease Diabetes mellitus Grandparent Diabetes mellitus Hypertension Grandparent Cancer Other Family history of lung cancer Social History Social History Social History: Caffeine-half caf coffee Smoking status: Never smoker Second hand tobacco smoke exposure: No Alcohol intake: current Drinks per week: 3 Substance use: never Substance use type: does not use Lack of Transportation: No Lack of Food: Never True Current Housing: I Have Housing Concerned About Future Housing: No Difficulty Paying Gas/Electric Bills: No Difficulty Paying for Meds: No Currently Unemployed: No Education: Bachelor's Degree Difficulty w/ Childcare or Family Care: No Living arrangements: with family Additional living arrangements comments: lives with spouseRenetta Gender identity (if verbalized by the patient): Male Spiritual care concerns: No Exam Narrative: GENERAL: Well-appearing, well-nourished, and in no acute distress. HEAD: Normocephalic, atraumatic. ENT: Mucous membranes moist. CHEST: Clear to auscultation. No respiratory distress. HEART: Regular rate and rhythm. Normal peripheral pulses. ABDOMEN: Soft, nontender, nondistended EXTREMITIES: Normal range of motion. Mild edema left lower extremity from foot to the knee 2+. SKIN: Warm, dry, cellulitis make calf down to the foot on left side with small breaks in the skin at the crease of the anterior ankle. NEURO: Alert and oriented x3. PSYCH: Normal mood and affect. Course Course Emergency Course: Patient informed of lab and imaging results. Appropriate for discharge home. Oral antibiotics to treat cellulitis. Vital Signs Vital signs: Vital Signs Temperature 96.3 F L 11/26/24 10:20 Pulse Rate 88 11/26/24 10:20 Respiratory Rate 20 11/26/24 10:20 Blood Pressure 176/75 H 11/26/24 10:20 Pulse Oximetry 98 11/26/24 10:20 Oxygen Delivery Room Air 11/26/24 10:20 Temperature 96.3 F L 11/26/24 10:20 Pulse Rate 75 11/26/24 13:17 Respiratory Rate 18 11/26/24 13:17 Blood Pressure 119/57 L 11/26/24 13:17 Pulse Oximetry 99 11/26/24 13:17 Oxygen Delivery Room Air 11/26/24 10:20 Medical Decision Making Vital Signs Vital Signs: Vital Signs Temperature 96.3 F L 11/26/24 10:20 Pulse Rate 88 11/26/24 10:20 Respiratory Rate 20 11/26/24 10:20 Blood Pressure 176/75 H 11/26/24 10:20 Pulse Oximetry 98 11/26/24 10:20 Oxygen Delivery Room Air 11/26/24 10:20 Temperature 96.3 F L 11/26/24 10:20 Pulse Rate 75 11/26/24 13:17 Respiratory Rate 18 11/26/24 13:17 Blood Pressure 119/57 L 11/26/24 13:17 Pulse Oximetry 99 11/26/24 13:17 Oxygen Delivery Room Air 11/26/24 10:20 Lab Data 11/26/24 12:50 11/26/24 12:50 Labs: Lab Results 11/26/24 Range/Units 12:50 WBC 10.2 H (4.5-10.0) K/mm3 RBC 4.40 L (4.6-6.20) M/mm3 Hgb 12.5 L (14.0-18.0) g/dL Hct 39.3 L (42.0-52.0) % MCV 89.3 (80-100) fl MCH 28.4 (26-34) pg MCHC 31.8 L (32-36) g/dl RDW 14.6 H (11.5-14.5) % Plt Count 285 (150-375) k/mm3 MPV 9.7 (7.4-10.4) fl Immature Gran % (Auto) 1.1 H (0-0.5) % Neut % (Auto) 71.5 (45.5-73.1) % Lymph % (Auto) 18.9 (18.3-44.2) % [place] % (Auto) 5.9 (2.6-8.5) % Eos % (Auto) 2.1 (0-4.4) % Baso % (Auto) 0.5 (0.2-1.2) % Lymph # (Auto) 1.92 (0.9-3.2) K/mm3 [place] # (Auto) 0.6 (0.1-0.6) K/mm3 Eos # (Auto) 0.2 (0-0.3) K/mm3 Baso # (Auto) 0.1 (0.0-0.1) K/mm3 Abs Immat Gran (auto) 0.11 H (0.00-0.031) K/mm3 Absolute Neuts (auto) 7.3 H (1.3-6.7) K/mm3 Absolute Nucleated RBC 0.000 (0.0-0.012) K/mm3 Nucleated RBC % 0.0 (0.0-0.2) % PT 13.6 (11.1-14.7) Seconds INR 1.0 APTT 27.5 (22.3-36.8) Seconds Sodium 136 L (137-145) mmol/L Potassium 4.5 (3.4-5.0) mmol/L Chloride 101 (98-107) mmol/L Carbon Dioxide 27 (22-30) mmol/L Anion Gap 8 (4-12) mmol/L BUN 17 (9-20) mg/dL Creatinine 1.04 (0.7-1.3) mg/dL Estim Creat Clear Calc 78 ml/min Estimated GFR > 60 (59 - ) Glucose 156 H (65-110) mg/dL Calcium 8.7 (8.4-10.2) mg/dL Total Bilirubin 0.7 (0.2-1.3) mg/dL AST 29 (17-59) U/L ALT 37 (6-50) U/L Alkaline Phosphatase 82 (38-126) U/L Total Protein 6.6 (6.3-8.2) g/dL Albumin 3.5 (3.5-5.1) g/dL Imaging Data Radiologist's impression: ITS Impressions Venous Doppler Study 11/26/24 13:10 Impression: Negative for DVT. Discharge Plan Discharge Clinical Impression: Cellulitis Patient Disposition: Home Condition: Stable Instructions: Antibiotic Form, Cellulitis (ED) Additional Instructions: Return ER if you have worsening redness moving up your leg, you have fever over 100.4? F, you develop chest pain, you have additional concerns. Patient Language: Faroese Prescriptions: New clindamycin HCl [Cleocin HCl] 150 mg capsule 450 mg PO Q8H 7 Days Qty: 63 0RF No Action latanoprost 0.005 % drops 1 drp RIGHT EYE DAILY acetaminophen [Tylenol Extra Strength] 500 mg tablet 500 mg PO Q6H PRN (DME) NovoFine Plus 32 gauge x 1/6 needle See Rx Instructions .Route Qty: 50 3RF Rx Instructions: As directed for use with Tresiba pen. ferrous sulfate 47.5 mg iron tablet extended release 143 mg PO DAILY ciprofloxacin-dexamethasone 0.3-0.1 % drops,suspension 5 drp RIGHT EAR TID Qty: 7.5 1RF Rx Instructions: Apply drops, let sit for 5 minutes Unisom (doxylamine) 25 mg tablet 25 mg PO QHS PRN cyanocobalamin (vitamin B-12) 1,000 mcg Capsule 1,000 mcg PO DAILY Sudafed 1 dose PO DAILY timolol maleate 0.5 % drops, once daily 1 drp RIGHT EYE DAILY folic acid 1 mg tablet See Rx Instructions .ROUTE .COMPLEX Qty: 90 1RF Dose Instruction: TAKE 1 TABLET DAILY Rx Instructions: TAKE 1 TABLET DAILY (DME) pen needle, diabetic 31 gauge x 1/4 needle See Rx Instructions .Route Qty: 100 1RF Rx Instructions: As directed with Victoza 31 G X 6 mm cholecalciferol (vitamin D3) 50 mcg (2,000 unit) capsule 50 mcg PO DAILY atorvastatin 40 mg tablet See Rx Instructions .ROUTE .COMPLEX Qty: 45 2RF Dose Instruction: TAKE 1/2 TABLET DAILY Rx Instructions: TAKE 1/2 TABLET DAILY candesartan 16 mg tablet See Rx Instructions .ROUTE .COMPLEX Qty: 90 1RF Dose Instruction: TAKE 1 TABLET DAILY Rx Instructions: TAKE 1 TABLET DAILY icosapent ethyl 1 gram capsule See Rx Instructions .ROUTE .COMPLEX Qty: 360 1RF Dose Instruction: TAKE 2 CAPSULES (2 GRAMS) TWO TIMES A DAY Rx Instructions: TAKE 2 CAPSULES (2 GRAMS) TWO TIMES A DAY Serevent Diskus 50 mcg/dose blister with device See Rx Instructions .ROUTE .COMPLEX Qty: 60 1RF Dose Instruction: USE 1 INHALATION ORALLY EVERY 12 HOURS Rx Instructions: USE 1 INHALATION ORALLY EVERY 12 HOURS Rybelsus 14 mg tablet 14 mg PO DAILY Qty: 90 4RF (DME) FreeStyle [place] 3 [place] Misc See Rx Instructions .Route Qty: 1 0RF Rx Instructions: As directed (DME) OneTouch Ultra Test Strip See Rx Instructions .ROUTE .COMPLEX Qty: 200 2RF Dose Instruction: USE TO CHECK SUGARS TWO TIMES A DAY Rx Instructions: USE TO CHECK SUGARS TWO TIMES A DAY (DME) FreeStyle Douglas 3 Plus Sensor Device See Rx Instructions .Route Qty: 3 1RF Rx Instructions: As directed insulin degludec [Tresiba FlexTouch U-200] 200 unit/mL (3 mL) insulin pen 50 unit subcut DAILY Qty: 9 3RF Synjardy XR 25-1,000 mg tablet, IR - ER, biphasic 24hr 1 tablet PO DAILY Qty: 90 1RF betamethasone dipropionate 0.05 % cream See Rx Instructions .ROUTE .COMPLEX Qty: 45 1RF Dose Instruction: APPLY 1 APPLICATION TOPICALLY NEEDED FOR ECZEMA Rx Instructions: APPLY 1 APPLICATION TOPICALLY NEEDED FOR ECZEMA niacin 750 mg tablet extended release 1,500 mg PO QHS Qty: 180 0RF fluticasone propionate 100 mcg/actuation blister with device See Rx Instructions .ROUTE .COMPLEX Qty: 60 2RF Dose Instruction: USE 1 INHALATION ORALLY EVERY 12 HOURS Rx Instructions: USE 1 INHALATION ORALLY EVERY 12 HOURS Xarelto 20 mg tablet 20 mg PO DAILY Qty: 60 1RF Rx Instructions: must administer with evening meal Follow-up/Referrals: Brett Puentes MD [Primary Care Provider, Internal Medicine] - 1 Week
[2024-11-26] MEDS: HYDROcodone/acetaminophen (*CRX) 5-325 MG TABLET 1 TAB PO (12:54)
[2024-11-26 13:11] LABS: Hematocrit 39.3 % (42.0-52.0); Hemoglobin 12.5 g/dL (14.0-18.0); Immature Granulocyte Percent A 1.1 % (0-0.5); Lymphocytes Absolute Auto 1.92 K/mm3 (0.9-3.2); Mean Corpuscular HGB Conc 31.8 g/dl (32-36); Mean Corpuscular Hemoglobin 28.4 pg (26-34); Mean Corpuscular Volume 89.3 fl (80-100); Nucleated Red Blood Cells Absolute Auto 0.000 K/mm3 (0.0-0.012); Nucleated Red Blood Cells Perc 0.0 % (0.0-0.2); Platelet Count Result 285 k/mm3 (150-375); Red Blood Count 4.40 M/mm3 (4.6-6.20); White Blood Count 10.2 K/mm3 (4.5-10.0)
[2024-11-26 13:20] LABS: INR 1.0; Prothrombin Time 13.6 Seconds (11.1-14.7)
[2024-11-26 13:21] LABS: Partial Thromboplastin Time 27.5 Seconds (22.3-36.8)
[2024-11-26 14:22] LABS: Alanine Aminotransferase 37 U/L (6-50); Albumin Level 3.5 g/dL (3.5-5.1); Alkaline Phosphatase 82 U/L (38-126); Anion Gap 8 mmol/L (4-12); Aspartate Amino Transferase 29 U/L (17-59); Bilirubin,Total 0.7 mg/dL (0.2-1.3); Blood Urea Nitrogen 17 mg/dL (9-20); Calcium 8.7 mg/dL (8.4-10.2); Carbon Dioxide 27 mmol/L (22-30); Chloride 101 mmol/L (98-107); Estimated CRCL calculation 78 ml/min; Estimated Glomerular Filt Rate > 60; Glucose 156 mg/dL (65-110); Potassium 4.5 mmol/L (3.4-5.0); Sodium 136 mmol/L (137-145); Total Protein 6.6 g/dL (6.3-8.2)
== END 2024-11-26 15:22 | disposition home or self-care (01) ==
PROVIDERS: Emergency Provider Emergency Medicine; PCP Internal Medicine
DX: L03.116 Cellulitis of left lower limb (principal); Z86.718 Personal history of other venous thrombosis and embolism; Z79.01 Long term (current) use of anticoagulants; J45.909 Unspecified asthma, uncomplicated; I12.9 Hypertensive chronic kidney disease with stage 1 through stage 4 chronic kidney disease, or unspecified chronic kidney disease; E11.22 Type 2 diabetes mellitus with diabetic chronic kidney disease; N18.9 Chronic kidney disease, unspecified; G47.30 Sleep apnea, unspecified; E78.5 Hyperlipidemia, unspecified
CPT/HCPCS: 36415; 80053; 85025; 85610; 85730; 93971; 99284; A9270

== ENCOUNTER 2024-11-28 10:37 | Emergency (ER) | payer BC, SELFPAY ==
[2024-11-28] VITALS (8 sets, daily range): BP systolic 140–150; BP diastolic 54–77; PULSE 75–99; RESP 15–20; TEMP 36.6; O2SAT 95–100
--- NOTE | 2024-11-28 10:49 | PC.NURSE ---
Since pt had stated that the redness and warmth had been spreading, this RN marked the border of the rash to see if it continues to spread while he is here. Line was marked with my name and the time.
[2024-11-28 11:28] LABS: Hematocrit 39.7 % (42.0-52.0); Hemoglobin 12.8 g/dL (14.0-18.0); Immature Granulocyte Percent A 0.6 % (0-0.5); Lymphocytes Absolute Auto 1.68 K/mm3 (0.9-3.2); Mean Corpuscular HGB Conc 32.2 g/dl (32-36); Mean Corpuscular Hemoglobin 28.4 pg (26-34); Mean Corpuscular Volume 88.0 fl (80-100); Nucleated Red Blood Cells Absolute Auto 0.000 K/mm3 (0.0-0.012); Nucleated Red Blood Cells Perc 0.0 % (0.0-0.2); Platelet Count Result 344 k/mm3 (150-375); Red Blood Count 4.51 M/mm3 (4.6-6.20); White Blood Count 10.4 K/mm3 (4.5-10.0)
[2024-11-28 11:39] LABS: Alanine Aminotransferase 31 U/L (6-50); Albumin Level 3.8 g/dL (3.5-5.1); Alkaline Phosphatase 79 U/L (38-126); Anion Gap 10 mmol/L (4-12); Aspartate Amino Transferase 33 U/L (17-59); Bilirubin,Total 0.8 mg/dL (0.2-1.3); Blood Urea Nitrogen 19 mg/dL (9-20); Calcium 9.1 mg/dL (8.4-10.2); Carbon Dioxide 23 mmol/L (22-30); Chloride 104 mmol/L (98-107); Estimated CRCL calculation 72 ml/min; Estimated Glomerular Filt Rate > 60; Glucose 153 mg/dL (65-110); Potassium 4.4 mmol/L (3.4-5.0); Sodium 137 mmol/L (137-145); Total Protein 7.8 g/dL (6.3-8.2)
[2024-11-28] MEDS: VANCOMYCIN 1,500 MG/NS 500 ML BAG 250 MG IVPB (11:54)
--- NOTE | 2024-11-28 12:55 | ED.GENADULT ---
HPI - General Adult General Chief complaint: Extremity Problem,Nontraumatic Stated complaint: L foot redness, worsening Time Seen by Provider: 11/28/24 10:54 History of Present Illness HPI narrative: This is a 79-year-old male presenting ED with chief life cellulitis. Patient was seen in our ER 2 days ago. He was diagnosed with simple cellulitis and discharged on clindamycin. Since then he is concerned that it may be spreading. He has medication for approximately 48 hours. He does not have any systemic signs of illness this fevers chills or diarrhea. Related Data Home Medications ?Medication ?Instructions ?Recorded ?Confirmed ?Last Taken ?Type Sudafed 1 dose PO DAILY 07/04/20 11/27/24 08/03/22 History latanoprost 0.005 % eye drops 1 drp RIGHT EYE DAILY 11/26/21 11/27/24 08/03/22 History timolol maleate 0.5 % once daily 1 drp RIGHT EYE DAILY 06/02/22 11/27/24 08/04/22 History eye drops cyanocobalamin (vitamin B-12) 1,000 mcg PO DAILY 07/26/22 11/27/24 08/03/22 History 1,000 mcg capsule doxylamine succinate 25 mg tablet 25 mg PO QHS PRN 01/25/23 11/27/24 Unknown History (Unisom (doxylamine)) cholecalciferol (vitamin D3) 50 50 mcg PO DAILY 02/16/24 11/27/24 Unknown History mcg (2,000 unit) capsule acetaminophen 500 mg tablet 500 mg PO Q6H PRN 03/07/24 11/27/24 Unknown History (Tylenol Extra Strength) ferrous sulfate 143 mg PO DAILY 09/27/24 11/27/24 Unknown History Allergies Allergy/AdvReac Type Severity Reaction Status Date / Time aspirin Allergy Unknown Anaphylaxis Verified 11/27/24 14:01 NSAIDS (Non-Steroidal Allergy Unknown Anaphylactic Verified 11/27/24 14:01 Anti-Inflamma Shock [facility] Past Medical History Medical History BMI 32.0-32.9,adult Follow up Encounter for Medicare annual wellness exam Personal history of COVID-19 BMI 28.0-28.9,adult Asthma Ear drainage right Encounter for routine adult health examination with abnormal findings Iron deficiency anemia BMI 29.0-29.9,adult Rib pain on left side Light headed Abdominal pain of unknown cause BMI 30.0-30.9,adult Otitis Diarrhea Impacted cerumen, left ear External otitis of right ear Vitamin D deficiency Hx of retinal detachment BMI 31.0-31.9,adult Impacted cerumen of both ears Impacted cerumen of right ear Encounter for preventive health examination Blindness of left eye CKD (chronic kidney disease) CHEMA on CPAP Colon cancer screening History of colon polyps Encounter for routine adult health examination without abnormal findings BMI 33.0-33.9,adult Mild reactive airways disease Elevated homocysteine On manager intermediate drug therapy Hyperlipidemia Benign essential hypertension DM type 2 (diabetes mellitus, type 2) Surgical History Surgical History History of hemicolectomy Lap right hemicolectomy, da Danielle assisted 08/04/22 History of eye surgery Family History Family History Mother Family history of Alzheimer's disease Hypertension Father Acute myocardial infarction Family history of coronary artery disease Sibling Family history of diabetes mellitus in first degree relative Family history of coronary artery disease Diabetes mellitus Grandparent Diabetes mellitus Hypertension Grandparent Cancer Other Family history of lung cancer Social History Social History Social History: Caffeine-half caf coffee Smoking status: Never smoker Second hand tobacco smoke exposure: No Alcohol intake: current Drinks per week: 3 Substance use: never Substance use type: does not use Lack of Transportation: No Lack of Food: Never True Current Housing: I Have Housing Concerned About Future Housing: No Difficulty Paying Gas/Electric Bills: No Difficulty Paying for Meds: No Currently Unemployed: No Education: Bachelor's Degree Difficulty w/ Childcare or Family Care: No Living arrangements: with family Additional living arrangements comments: lives with spouse, Renetta Gender identity (if verbalized by the patient): Male Spiritual care concerns: No Exam Narrative: APPEARANCE: No apparent distress. Head: atraumatic. EYES: EOMI, NOSE: Atraumatic NECK: Trachea midline RESPIRATORY: No increased rate of breathing CARDIOVASCULAR: RRR, ABDOMINAL: Non-distended MUSCULOSKELETAl: No obvious deformities NEURO: Alert. Moving 4/4 extremities SKIN:: Cellulitic changes to the left lower extremity, borders were marked with skin marker PSYCHIATRIC: Normal affect Course Vital Signs Vital signs: Vital Signs Temperature 97.9 F 11/28/24 10:40 Pulse Rate 99 11/28/24 10:40 Respiratory Rate 18 11/28/24 10:40 Pulse Oximetry 98 11/28/24 10:40 Temperature 97.9 F 11/28/24 10:40 Pulse Rate 98 11/28/24 12:10 Respiratory Rate 16 11/28/24 12:10 Blood Pressure 145/77 H 11/28/24 12:10 Pulse Oximetry 97 11/28/24 12:10 Medical Decision Making MDM Narrative Medical decision making narrative: -Course: 79-year-old male bounced back to the ED with cellulitis. He has been on antibiotics for less than 48 hours. He is concerned that is worsening. Initially the plan was to admit him for IV antibiotics. Over the physician who treated him 2 days ago return to shift and evaluated cellulitis and thinks that it is improving. Patient is hemodynamically stable without any laboratory abnormalities. He is not septic. This was discussed with patient as cellulitis usually takes 48 hours before it starts to improve. This was discussed with the patient we discussed admission for IV antibiotics versus giving this another 24-36 hours to see if it is starting to improve. The patient is agreeable to giving it a little bit more time as he feels well overall. Patient will be discharged with return precautions. -DDX includes but is not limited to: cellulitis, dvt, Vital Signs Vital Signs: Vital Signs Temperature 97.9 F 11/28/24 10:40 Pulse Rate 99 11/28/24 10:40 Respiratory Rate 18 11/28/24 10:40 Pulse Oximetry 98 11/28/24 10:40 Temperature 97.9 F 11/28/24 10:40 Pulse Rate 98 11/28/24 12:10 Respiratory Rate 16 11/28/24 12:10 Blood Pressure 145/77 H 11/28/24 12:10 Pulse Oximetry 97 11/28/24 12:10 Lab Data 11/28/24 11:16 11/28/24 11:16 Labs: Lab Results 11/28/24 Range/Units 11:16 WBC 10.4 H (4.5-10.0) K/mm3 RBC 4.51 L (4.6-6.20) M/mm3 Hgb 12.8 L (14.0-18.0) g/dL Hct 39.7 L (42.0-52.0) % MCV 88.0 (80-100) fl MCH 28.4 (26-34) pg MCHC 32.2 (32-36) g/dl RDW 14.6 H (11.5-14.5) % Plt Count 344 (150-375) k/mm3 MPV 9.5 (7.4-10.4) fl Immature Gran % (Auto) 0.6 H (0-0.5) % Neut % (Auto) 74.8 H (45.5-73.1) % Lymph % (Auto) 16.1 L (18.3-44.2) % [place] % (Auto) 6.7 (2.6-8.5) % Eos % (Auto) 1.4 (0-4.4) % Baso % (Auto) 0.4 (0.2-1.2) % Lymph # (Auto) 1.68 (0.9-3.2) K/mm3 [place] # (Auto) 0.7 H (0.1-0.6) K/mm3 Eos # (Auto) 0.2 (0-0.3) K/mm3 Baso # (Auto) 0.0 (0.0-0.1) K/mm3 Abs Immat Gran (auto) 0.06 H (0.00-0.031) K/mm3 Absolute Neuts (auto) 7.8 H (1.3-6.7) K/mm3 Absolute Nucleated RBC 0.000 (0.0-0.012) K/mm3 Nucleated RBC % 0.0 (0.0-0.2) % Sodium 137 (137-145) mmol/L Potassium 4.4 (3.4-5.0) mmol/L Chloride 104 (98-107) mmol/L Carbon Dioxide 23 (22-30) mmol/L Anion Gap 10 (4-12) mmol/L BUN 19 (9-20) mg/dL Creatinine 1.12 (0.7-1.3) mg/dL Estim Creat Clear Calc 72 ml/min Estimated GFR > 60 (59 - ) Glucose 153 H (65-110) mg/dL Lactic Acid 1.0 (0.7-2.0) mmol/L Calcium 9.1 (8.4-10.2) mg/dL Total Bilirubin 0.8 (0.2-1.3) mg/dL AST 33 (17-59) U/L ALT 31 (6-50) U/L Alkaline Phosphatase 79 (38-126) U/L Total Protein 7.8 (6.3-8.2) g/dL Albumin 3.8 (3.5-5.1) g/dL Discharge Plan Discharge Clinical Impression: Cellulitis Patient Disposition: Home Condition: Stable Instructions: Antibiotic Form, Cellulitis (ED) Additional Instructions: He was seen emergency department for cellulitis. Please continue your clindamycin. For cellulitis should start to improve over the next 24 hours or so. If you feel the cellulitis is not improving, or you develop signs systemic illness such as fevers, chills, body aches or weakness please return to ED for re-evaluation. Patient Language: Khmer Prescriptions: No Action latanoprost 0.005 % drops 1 drp RIGHT EYE DAILY acetaminophen [Tylenol Extra Strength] 500 mg tablet 500 mg PO Q6H PRN (DME) NovoFine Plus 32 gauge x 1/6 needle See Rx Instructions .Route Qty: 50 3RF Rx Instructions: As directed for use with [employer]it[employer] pen. ferrous sulfate 47.5 mg iron tablet extended release 143 mg PO DAILY ciprofloxacin-dexamethasone 0.3-0.1 % drops,suspension 5 drp RIGHT EAR TID Qty: 7.5 1RF Rx Instructions: Apply drops, let sit for 5 minutes Unisom (doxylamine) 25 mg tablet 25 mg PO QHS PRN cyanocobalamin (vitamin B-12) 1,000 mcg Capsule 1,000 mcg PO DAILY Sudafed 1 dose PO DAILY timolol maleate 0.5 % drops, once daily 1 drp RIGHT EYE DAILY clindamycin HCl [Cleocin HCl] 150 mg capsule 450 mg PO Q8H 7 Days Qty: 63 0RF folic acid 1 mg tablet See Rx Instructions .ROUTE .COMPLEX Qty: 90 1RF Dose Instruction: TAKE 1 TABLET DAILY Rx Instructions: TAKE 1 TABLET DAILY (DME) pen needle, diabetic 31 gauge x 1/4 needle See Rx Instructions .Route Qty: 100 1RF Rx Instructions: As directed with Victoza 31 G X 6 mm cholecalciferol (vitamin D3) 50 mcg (2,000 unit) capsule 50 mcg PO DAILY atorvastatin 40 mg tablet See Rx Instructions .ROUTE .COMPLEX Qty: 45 2RF Dose Instruction: TAKE 1/2 TABLET DAILY Rx Instructions: TAKE 1/2 TABLET DAILY candesartan 16 mg tablet See Rx Instructions .ROUTE .COMPLEX Qty: 90 1RF Dose Instruction: TAKE 1 TABLET DAILY Rx Instructions: TAKE 1 TABLET DAILY icosapent ethyl 1 gram capsule See Rx Instructions .ROUTE .COMPLEX Qty: 360 1RF Dose Instruction: TAKE 2 CAPSULES (2 GRAMS) TWO TIMES A DAY Rx Instructions: TAKE 2 CAPSULES (2 GRAMS) TWO TIMES A DAY Serevent Diskus 50 mcg/dose blister with device See Rx Instructions .ROUTE .COMPLEX Qty: 60 1RF Dose Instruction: USE 1 INHALATION ORALLY EVERY 12 HOURS Rx Instructions: USE 1 INHALATION ORALLY EVERY 12 HOURS Rybelsus 14 mg tablet 14 mg PO DAILY Qty: 90 4RF (DME) FreeStyle [place] 3 [place] Misc See Rx Instructions .Route Qty: 1 0RF Rx Instructions: As directed (DME) OneTouch Ultra Test Strip See Rx Instructions .ROUTE .COMPLEX Qty: 200 2RF Dose Instruction: USE TO CHECK SUGARS TWO TIMES A DAY Rx Instructions: USE TO CHECK SUGARS TWO TIMES A DAY (DME) FreeStyle [place] 3 Plus Sensor Device See Rx Instructions .Route Qty: 3 1RF Rx Instructions: As directed insulin degludec [Tresiba FlexTouch U-200] 200 unit/mL (3 mL) insulin pen 50 unit subcut DAILY Qty: 9 3RF Synjardy XR 25-1,000 mg tablet, IR - ER, biphasic 24hr 1 tablet PO DAILY Qty: 90 1RF betamethasone dipropionate 0.05 % cream See Rx Instructions .ROUTE .COMPLEX Qty: 45 1RF Dose Instruction: APPLY 1 APPLICATION TOPICALLY NEEDED FOR ECZEMA Rx Instructions: APPLY 1 APPLICATION TOPICALLY NEEDED FOR ECZEMA niacin 750 mg tablet extended release 1,500 mg PO QHS Qty: 180 0RF fluticasone propionate 100 mcg/actuation blister with device See Rx Instructions .ROUTE .COMPLEX Qty: 60 2RF Dose Instruction: USE 1 INHALATION ORALLY EVERY 12 HOURS Rx Instructions: USE 1 INHALATION ORALLY EVERY 12 HOURS Xarelto 20 mg tablet 20 mg PO DAILY Qty: 60 1RF Rx Instructions: must administer with evening meal Follow-up/Referrals: Brett Puentes MD [Primary Care Provider, Internal Medicine]
--- OUTSIDE RECORDS SUMMARY | 2024-11-28 13:05 | XMS_ITS | Clinical Summary ---
Author Organization 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 Gender Identity Not on file Sexual Orientation Not on file Obstetrics History Last Filed Vital Signs Vital Sign Reading Time Taken Comments Blood Pressure - - Pulse - - Temperature - - Respiratory Rate 18 02/23/2022 3:04 PM INSURANCE LOSS ADJUSTER Oxygen Saturation - - Inhaled Oxygen Concentration - - Weight 115.7 kg (255 lb) 02/23/2022 3:04 PM INSURANCE LOSS ADJUSTER Height 198.1 cm (6' 6) 02/23/2022 3:04 PM INSURANCE LOSS ADJUSTER Body Mass Index 29.47 02/23/2022 3:04 PM INSURANCE LOSS ADJUSTER Plan of Treatment Health Maintenance Due Date Last Done Comments Depression Screening 1945 Fall Risk Assessment 1945 Hepatitis C Screening 1945 DTaP/Tdap/Td Vaccine (1 - Tdap) 1958 Hepatitis B Screening 1965 Zoster Vaccine (1 of 2) 1997 Well Visit 65+ 02/26/2012 Pneumococcal vaccine 65+ (2 of 2 - PCV20 or PCV21) 02/04/2018 02/04/2017 Covid-19 Vaccine (6 - 2024-2 6 season) 2024 10/22/2021, 05/18/2021, 11/03/2020, Additional history exists Influenza Vaccine (#1) 2024 , 10/15/2020, 11/06/2019, Additional history exists Insurance [facility] Care Teams University Registrar Relationship Specialty Start Date End Date Brett Puentes MD PCP - General Internal Medicine 02/17/22
--- OUTSIDE RECORDS SUMMARY | 2024-11-28 14:20 | XMS_ITS | Clinical Summary ---
Author Organization [facility] Address [address] [place] [address] Care Team Providers Care Upsetting Machine Operator Name Role Phone Brett Puentes MD [...] on file Legal Sex Male 9:00 AM [employer] W[employer] Gender Identity Not on file Sexual Orientation Not on file Obstetrics History Last Filed Vital Signs Vital Sign Reading Time Taken Comments Blood Pressure - - Pulse - - Temperature - - Respiratory Rate 18 02/23/2022 3:04 PM [employer] W[employer] Oxygen Saturation - - Inhaled Oxygen Concentration - - Weight 115.7 kg (255 lb) 02/23/2022 3:04 PM [employer] W[employer] Height 198.1 cm (6' 6) 02/23/2022 3:04 PM [employer] W[employer] Body Mass Index 29.47 02/23/2022 3:04 PM [employer] W[employer] Plan of Treatment Health Maintenance Due Date [...] , 10/15/2020, 11/06/2019, Additional history exists Insurance [facility] Care Teams Upsetting Machine Operator Relationship Specialty Start Date End Date Brett Puentes MD PCP - General Internal Medicine 02/17/22
== END 2024-11-28 14:15 | disposition home or self-care (01) ==
PROVIDERS: Emergency Provider Emergency Medicine; PCP Internal Medicine
DX: L03.90 Cellulitis, unspecified (principal); E55.9 Vitamin D deficiency, unspecified; N18.9 Chronic kidney disease, unspecified; G47.33 Obstructive sleep apnea (adult) (pediatric); Z99.89 Dependence on other enabling machines and devices; E78.5 Hyperlipidemia, unspecified; I12.9 Hypertensive chronic kidney disease with stage 1 through stage 4 chronic kidney disease, or unspecified chronic kidney disease; E11.22 Type 2 diabetes mellitus with diabetic chronic kidney disease
CPT/HCPCS: 36415; 80053; 83605; 85025; 96365; 96366; 99284; J3373